=== PATIENT | male | born 1940 | race Caucasian/White ===

== ENCOUNTER 2018-02-12 18:03 | Observation (INO) | payer OTHER ==
[~2018-02-12] VITALS: Ht 172.7 cm; Wt 83.7 kg
[~2018-02-12 18:03] MED LIST: ALT25 PO; ASPEC81 PO; ATV1 PO; CMD1 PO; CRG625 PO; DIGO0.122 PO; FLUO40CA8 PO; FRRS300 PO; ISOS30TA3 PO; LOVA40TA4 PO; NTRGSL/4 UT; OMEG10007 PO; OXYC-57 PO; PRLSR20 PO; RANI300T2 PO
[2018-02-12] MEDS ORDERED: OPTIRAY 320 IV PRN (18:45)
--- NOTE | 2018-02-12 18:49 | DIAGNOSTIC IMAGING REPORT ---
CHEST ONE VIEW PORTABLE CLINICAL HISTORY: CHEST PAIN dyspnea COMPARISON STUDY: No previous studies for comparison. FINDINGS: The bones soft tissues and hemidiaphragms are normal. The cardiomediastinal silhouette is normal. The lungs are clear. The pulmonary vasculature is normal. IMPRESSION: Negative chest. The above report was generated using voice recognition software. It may contain grammatical, syntax or spelling errors. Electronically signed by: Merlin Degroot M.D. 02/12/2018 6:48 PM Dictated Date/Time: 02/12/2018 6:46 PM
[2018-02-12 19:05] LABS: BASO % 0.2 %; BASO ABS # 0.01 K/uL (0-0.2); EOS % 1.8 %; EOS ABS # 0.12 K/uL (0-0.5); HEMATOCRIT 39.4 % (42-52); HEMOGLOBIN 13.9 g/dL (14.0-18.0); IG# 0.01 K/uL (0.00-0.02); LYMPH % 29.2 %; LYMPH ABS # 1.92 K/uL (1.2-3.4); MEAN CELL VOLUME 93.4 fL (80-100); MEAN CORPUSCULAR HEMOGLOBIN 32.9 pg (25-34); MEAN CORPUSCULAR HGB CONC 35.3 g/dl (32-36); MEAN PLATELET VOLUME 8.7 fL (7.4-10.4); MONO % 13.4 %; MONO ABS # 0.88 K/uL (0.11-0.59); NEUT % 55.2 %; NEUT ABS # 3.64 K/uL (1.4-6.5); PLATELET COUNT 172 K/uL (130-400); RED CELL DISTRIBUTION WIDTH CV 13.1 % (11.5-14.5); RED CELL DISTRIBUTION WIDTH SD 44.7 fL (36.4-46.3); WHITE BLOOD COUNT 6.58 K/uL (4.8-10.8)
[2018-02-12 19:06] LABS: ISTAT CREATININE 0.9 mg/dl (0.6-1.3); ISTAT IONIZED CALCIUM 1.14 mmol/l (1.12-1.32); ISTAT POTASSIUM 4.1 mEq/L (3.3-5.0)
[2018-02-12 19:21] LABS: ALBUMIN 3.4 gm/dl (3.4-5.0); CALCIUM 8.6 mg/dl (8.5-10.1); CREATININE 0.95 mg/dl (0.60-1.40)
[2018-02-12 19:26] LABS: CKMB 1.1 ng/ml (0.5-3.6); TOTAL PROTEIN 6.8 gm/dl (6.4-8.2)
[2018-02-12 19:29] LABS: PTT PATIENT 26.5 SECONDS (21.0-31.0)
--- NOTE | 2018-02-12 19:41 | DIAGNOSTIC IMAGING REPORT ---
HEAD WITHOUT CONTRAST (CT) CT DOSE: 1175.88 mGy.cm HISTORY: Mental status change. Headache. eval for jacobs TECHNIQUE: Multiaxial CT images of the head were performed without the use of intravenous contrast. A dose lowering technique was utilized adhering to the principles of ALARA. Comparison: None. Findings: The paranasal sinuses and mastoid air cells are clear. The calvarium and skull base are intact. The ventricles and sulci are within normal limits. There is no mass, hematoma, midline shift, or acute infarct. Impression: No acute intracranial abnormality. The above report was generated using voice recognition software. It may contain grammatical, syntax or spelling errors. Electronically signed by: Merlin Degroot M.D. 02/12/2018 7:39 PM Dictated Date/Time: 02/12/2018 7:39 PM
--- NOTE | 2018-02-12 19:44 | DIAGNOSTIC IMAGING REPORT ---
CHEST ANGIO WITH CONTRAST CLINICAL HISTORY: EVAL FOR DISECTION, BACK PAIN, EPIGASTRIC PAIN TECHNIQUE: Transaxial acquisition with multi axial reformatted images COMPARISON STUDY: None FINDINGS: Mild atelectatic change thoracic aorta. No evidence for aneurysm or dissection. Mild cardia megaly. Lungs are considered clear. There are no focal infiltrative changes. Moderate degenerative change of the thoracic spine with no evidence for compression deformity. IMPRESSION: 1. No evidence for aneurysm or dissection of the thoracic aorta. 2. Mild atherosclerotic change. 3. No evidence for pulmonary embolus. 4. Lungs are clear. The above report was generated using voice recognition software. It may contain grammatical, syntax or spelling errors. Electronically signed by: Merlin Degroot M.D. 02/12/2018 7:43 PM Dictated Date/Time: 02/12/2018 7:40 PM
[2018-02-12] MEDS ORDERED: PRZC/10 PO (20:21)
[2018-02-12] MEDS ORDERED: ATV/1 PO (20:21)
[2018-02-12] MEDS ORDERED: CARV6.25 PO (20:21)
[2018-02-12] MEDS ORDERED: EZET10TA63 PO (20:21)
[2018-02-12] MEDS ORDERED: FLUO20CA35 PO (20:21)
[2018-02-12] MEDS ORDERED: ASPI81TA28 PO (20:21)
[2018-02-12] MEDS ORDERED: CYAN500T PO (20:21)
[2018-02-12] MEDS ORDERED: FERR1TAB23 PO (20:21)
[2018-02-12] MEDS ORDERED: CALC1CHW2 PO (20:21)
[2018-02-12] MEDS ORDERED: LNX125 PO (20:21)
[2018-02-12] MEDS ORDERED: [UNRECOGNIZED DRUG - CODE] PO (20:21)
[2018-02-12] MEDS ORDERED: MULTTAB PO (20:21)
[2018-02-12] MEDS ORDERED: ATOR-24 PO (20:21)
[2018-02-12] MEDS ORDERED: DIPH-437 PO (20:21)
[2018-02-12] MEDS ORDERED: ISOS60TA25 PO (20:21)
--- NOTE | 2018-02-12 20:27 | EMERGENCY ROOM VISIT NOTE ---
History Report prepared by Adelina: Julienne Bañuelos Under the Supervision of: Dr. Pedro Pablo Dobson M.D. First contact with patient: 18:18 Chief Complaint: CARDIAC ASSESSMENT Stated Complaint: BACK PAIN, TIERNEY, UPPER GASTRIC PAIN, ARM PAIN History of Present Illness The patient is a 77 year old male who presents to the Emergency Room with complaints of resolved chest pain which occurred last night. The patient reports hot flashes through his chest which occurred 3 times last night. His feet felt cold and he had an abnormal sensation in his left arm. He also had a headache and SOB with this. He felt warm like he might have a fever. He had some pain in his left shoulder blade. He eventually went back to sleep and when he woke this morning, he felt improved. He notes that he has had some chest tightness with exertion recently. He denies any black or bloody stools, numbness , or weakness. He has a history of angina and has nitro at home. He did not take any nitro last night. He has had multiple cardiac catheterizations in the past, but no stents. His last catheterization was 3-4 years ago. He is on aspirin daily. He has been having headaches with dizziness recently for which he is following with his PCP. He was sick with flu symptoms 1-2 weeks ago. He denies any history of diabetes, aortic aneurysm, or kidney problems. Source of History: patient, family Onset: last night Position: chest Quality: other (hot flash) Timing: resolved Modifying Factors (Worsening): exertion Associated Symptoms: + headache, + SOB, No melena, No hematochezia, No weakness, No numbness Note: Pt reports cold feet, left shoulder blade pain. Review of Systems See HPI for pertinent positives & negatives. A total of 10 systems reviewed and were otherwise negative. Past Medical & Surgical Medical Problems: (1) Chest pain (2) High cholesterol (3) Hypertension Surgical Problems: (1) S/P cholecystectomy Old medical records were reviewed. Nurse's notes were reviewed and I agree with. Family History FH: heart disease FHx: cancer Hypertension Social History Smoking Status: Former Smoker Alcohol Use: none Housing Status: lives with family Occupation Status: employed Current/Historical Medications Scheduled Acetaminophen/Diphenhydramine (Tylenol Pm), 2 TAB PO HS Aspirin (Aspirin Ec), 81 MG PO DAILY Atorvastatin (Lipitor), 40 MG PO QPM Calcium Carbonate-Vitamin D (Caltrate 600+D 600-400 mg-Unit), 1 TAB PO DAILY Carvedilol (Coreg), 6.25 MG PO BID Cyanocobalamin (Vitamin B-12), 500 MCG PO DAILY Digoxin (Digoxin), 0.125 MG PO DAILY Ezetimibe (Zetia), 10 MG PO QPM Ferrous Sulfate (Iron), 325 MG PO DAILY Fish Oil ([place]-3), 1 CAP PO DAILY Fluoxetine (Prozac), 20 MG PO DAILY Fluoxetine Hcl (Prozac), 10 MG PO DAILY Isosorbide Mononitrate Ext Rel (Imdur Ext Rel), 30 MG PO QAM Lorazepam (Ativan), 1 MG PO HS Multivitamins/Minerals (Mvi With Minerals), 1 TAB PO DAILY Nitroglycerin (Nitrostat), 0.4 MG UT PRN Omeprazole (Prilosec), 20 MG PO QAM Ramipril (Altace), 1.25 MG PO DAILY Ranitidine (Zantac), 300 MG PO HS Scheduled PRN Naproxen (Aleve), 220 MG PO DAILY PRN for Pain Allergies Coded Allergies: Ketorolac Tromethamine (Verified Adverse Reaction, Severe, hallucinations , 02/12/18) Physical Exam Vital Signs Date Time Temp Pulse Resp B/P (MAP) Pulse Ox O2 Delivery O2 Flow Rate FiO2 02/12/18 19:53 66 153/76 95 Room Air 02/12/18 18:31 67 02/12/18 18:17 95 Room Air 02/12/18 18:14 95 Room Air 02/12/18 18:07 36.6 78 18 176/88 95 Room Air Physical Exam General: Non-ill appearing older male in no acute distress. HEENT: Normal cephalic atraumatic. Pupils are equal round and reactive to light. Extraocular movements are intact. Oropharynx is pink with moist mucous membranes. No swelling of the mouth lips or tongue. Neck: Supple with a midline trachea. No meningeal signs or stiffness, no JVD or bruits. No Stridor. Chest: Clear to auscultation bilaterally. No wheezes or rhonchi. No increased work of breathing. Heart: regular rate and rhythm. Abdomen: Soft nontender, nondistended without rebound guarding or rigidity. Extremities: No cyanosis clubbing or edema. No calf tenderness or assymetry Spine/Back. Non tender to palpation. No CVA tenderness Skin: Good turgor without rashes. Neurologic exam: Cranial nerves two through 12 are intact. Motor and sensation are intact and symmetrical throughout. Medical Decision & Procedures ER Provider Diagnostic Interpretation: X-ray results as stated below per interpretation by me and the radiologist. Radiology results as stated below per my review and radiologist interpretation: CHEST ONE VIEW PORTABLE CLINICAL HISTORY: CHEST PAIN dyspnea COMPARISON STUDY: No previous studies for comparison. FINDINGS: The bones soft tissues and hemidiaphragms are normal. The cardiomediastinal silhouette is normal. The lungs are clear. The pulmonary vasculature is normal. IMPRESSION: Negative chest. The above report was generated using voice recognition software. It may contain grammatical, syntax or spelling errors. Electronically signed by: Merlin Degroot M.D. 02/12/2018 6:48 PM Dictated Date/Time: 02/12/2018 6:46 PM HEAD WITHOUT CONTRAST (CT) CT DOSE: 1175.88 mGy.cm HISTORY: Mental status change. Headache. eval for tierney TECHNIQUE: Multiaxial CT images of the head were performed without the use of intravenous contrast. A dose lowering technique was utilized adhering to the principles of ALARA. Comparison: None. Findings: The paranasal sinuses and mastoid air cells are clear. The calvarium and skull base are intact. The ventricles and sulci are within normal limits. There is no mass, hematoma, midline shift, or acute infarct. Impression: No acute intracranial abnormality. The above report was generated using voice recognition software. It may contain grammatical, syntax or spelling errors. Electronically signed by: Merlin Degroot M.D. 02/12/2018 7:39 PM Dictated Date/Time: 02/12/2018 7:39 PM CHEST ANGIO WITH CONTRAST CLINICAL HISTORY: EVAL FOR DISECTION, BACK PAIN, EPIGASTRIC PAIN TECHNIQUE: Transaxial acquisition with multi axial reformatted images COMPARISON STUDY: None FINDINGS: Mild atelectatic change thoracic aorta. No evidence for aneurysm or dissection. Mild cardia megaly. Lungs are considered clear. There are no focal infiltrative changes. Moderate degenerative change of the thoracic spine with no evidence for compression deformity. IMPRESSION: 1. No evidence for aneurysm or dissection of the thoracic aorta. 2. Mild atherosclerotic change. 3. No evidence for pulmonary embolus. 4. Lungs are clear. The above report was generated using voice recognition software. It may contain grammatical, syntax or spelling errors. Electronically signed by: Merlin Degroot M.D. 02/12/2018 7:43 PM Dictated Date/Time: 02/12/2018 7:40 PM Laboratory Results 02/12/18 18:50 Red Blood Count 4.22, Mean Corpuscular Volume 93.4, Mean Corpuscular Hemoglobin 32.9, Mean Corpuscular Hemoglobin Concent 35.3, Mean Platelet Volume 8.7, Neutrophils (%) (Auto) 55.2, Lymphocytes (%) (Auto) 29.2, Monocytes (%) (Auto) 13.4, Eosinophils (%) (Auto) 1.8, Basophils (%) (Auto) 0.2, Neutrophils # (Auto ) 3.64, Lymphocytes # (Auto) 1.92, Monocytes # (Auto) 0.88, Eosinophils # (Auto ) 0.12, Basophils # (Auto) 0.01 02/12/18 18:50 Test 02/12/18 18:50 02/12/18 18:52 02/12/18 18:54 White Blood Count 6.58 K/uL (4.8-10.8) Red Blood Count 4.22 M/uL (4.7-6.1) Hemoglobin 13.9 g/dL (14.0-18.0) Hematocrit 39.4 % (42-52) Mean Corpuscular Volume 93.4 fL (80-100) Mean Corpuscular Hemoglobin 32.9 pg (25-34) Mean Corpuscular Hemoglobin Concent 35.3 g/dl (32-36) Platelet Count 172 K/uL (130-400) Mean Platelet Volume 8.7 fL (7.4-10.4) Neutrophils (%) (Auto) 55.2 % Lymphocytes (%) (Auto) 29.2 % Monocytes (%) (Auto) 13.4 % Eosinophils (%) (Auto) 1.8 % Basophils (%) (Auto) 0.2 % Neutrophils # (Auto) 3.64 K/uL (1.4-6.5) Lymphocytes # (Auto) 1.92 K/uL (1.2-3.4) Monocytes # (Auto) 0.88 K/uL (0.11-0.59) Eosinophils # (Auto) 0.12 K/uL (0-0.5) Basophils # (Auto) 0.01 K/uL (0-0.2) RDW Standard Deviation 44.7 fL (36.4-46.3) RDW Coefficient of Variation 13.1 % (11.5-14.5) Immature Granulocyte % (Auto) 0.2 % Immature Granulocyte # (Auto) 0.01 K/uL (0.00-0.02) Prothrombin Time 10.3 SECONDS (9.0-12.0) Prothromb Time International Ratio 1.0 (0.9-1.1) Activated Partial Thromboplast Time 26.5 SECONDS (21.0-31.0) Partial Thromboplastin Ratio 1.0 Est Creatinine Clear Calc Drug Dose 69.1 ml/min Estimated GFR () 89.1 Estimated GFR (Non- 76.9 BUN/Creatinine Ratio 16.2 (10-20) Calcium Level 8.6 mg/dl (8.5-10.1) Magnesium Level 2.4 mg/dl (1.8-2.4) Total Bilirubin 0.7 mg/dl (0.2-1) Direct Bilirubin 0.2 mg/dl (0-0.2) Aspartate Amino Transf (AST/SGOT) 20 U/L (15-37) Alanine Aminotransferase (ALT/SGPT) 28 U/L (12-78) Alkaline Phosphatase 71 U/L (45-117) Total Creatine Kinase 76 U/L (39-308) Creatine Kinase MB 1.1 ng/ml (0.5-3.6) Creatine Kinase MB Ratio 1.4 (0-3.0) Total Protein 6.8 gm/dl (6.4-8.2) Albumin 3.4 gm/dl (3.4-5.0) Lipase 83 U/L (73-393) Thyroid Stimulating Hormone (TSH) 3.410 uIu/ml (0.300-4.500) Bedside Hemoglobin 13.9 g/dl (14.0-18.0) Bedside Hematocrit 41 % (42-52) Bedside Sodium 138 mEq/L (135-144) Bedside Potassium 4.1 mEq/L (3.3-5.0) Bedside Chloride 103 mEq/L (101-112) Bedside Total CO2 25 mEq/l (24-31) Anion Gap 16.0 mmol/L (16-25) Bedside Blood Urea Nitrogen 16 mg/dl (7-18) Bedside Creatinine 0.9 mg/dl (0.6-1.3) Bedside Glucose (other) 96 mg/dl (70-99) Bedside Ionized Calcium (Frankie) 1.14 mmol/l (1.12-1.32) Bedside Troponin I < 0.030 ng/ml (0-0.045) Laboratory studies as stated above per my review. ECG Per My Interpretation Indication: chest pain Rate (beats per minute): 68 Rhythm: normal sinus Findings: no acute ischemic change, no ectopy, other (LVH) Comparison ECG Date: 08-Oct-2010 Change: no significant change ED Course 1818: Past medical records reviewed. The patient was evaluated in room A3, and a complete history and physical examination were performed. 1854: I reevaluated the patient. He is resting comfortably. 1944: I reevaluated the patient. I updated them on the results. 2007: Upon reevaluation, the patient is resting comfortably. I discussed the results and treatment plan with the patient and family. They verbalized agreement of the treatment plan. The patient will be evaluated for further management. 2019: I discussed the patient's case with Dr. Marin, [facility]. The patient will be evaluated for further management. Medical Decision Differentials include, but are not limited to; acute coronary syndrome, arrhythmia, aortic dissection, CHF, intracranial process, electrolyte or metabolic abnormality. This patient comes in as described above. He had several episodes of chest pain last evening that lasted briefly. He feels better at present the also radiating his arm and he may have had a headache as well. He has a history of cardiac disease and is not of the calf for several years he did not take any nitro. His daughter who is a nurse tells me that he does have cardiac blockages but they have not stented him. He has taken aspirin prior to arrival today. IV access established EKG and multiple blood testing was obtained. His EKG does not show any acute ischemic changes or ectopy and no changes when compared to old. His troponin is not elevated. He has no acute electrolyte or metabolic abnormalities. He has normal renal function. He has nothing to suggest liver, gallbladder, or pancreas disease. I did a CAT scan of his head is unremarkable. I did CAT scan angiography of his chest and shows no evidence of aortic dissection or PE or other abnormality. Given his symptoms this could still be an unstable angina type picture and I do think he needs to be observed for further treatment and evaluation I have consulted Dr. Lizarraga to see him in the ER for these measures. Patient and his family are happy with this plan. Medication Reconcilliation Current Medication List: was personally reviewed by me Blood Pressure Screening Patient's blood pressure: Elevated blood pressure Consults Time Called: 2014 Consulting Physician: Dr. Marin [facility] hospitalist Returned Call: 2019 Discussed the patient's case. The patient will be evaluated for further management. Impression Primary Impression: Precordial chest pain Additional Impressions: Unstable angina Headache Scribe Attestation The scribe's documentation has been prepared under my direction and personally reviewed by me in its entirety. I confirm that the note above accurately reflects all work, treatment, procedures, and medical decision making performed by me. Departure Information Dispostion Being Evaluated By Hospitalist Referrals Zainab Raya M.D. (PCP) Patient Instructions My [facility] Problem Qualifiers
[2018-02-12] MEDS ORDERED: NAPR1TAB9 PO (20:32)
[2018-02-12] MEDS ORDERED: CARVEDILOL 6.25 MG TAB PO ONE (21:20)
[2018-02-12] MEDS ORDERED: ATORVASTATIN 40 MG TAB PO ONE (21:20)
[2018-02-12] MEDS ORDERED: SODIUM CHLORIDE 0.9% 1000ML 1,000 ML IV SCH (21:20)
[2018-02-12] MEDS ORDERED: EZETIMIBE 10MG TAB PO ONE (21:20)
[2018-02-12] MEDS ORDERED: MoRPHine SULFATE 4 MG/ML 1 ML CARP\\VIAL IV PRN (21:30)
[2018-02-12] MEDS ORDERED: PROCHLORPERAZINE INJ 5 MG in SYRINGE 4 ML IV PRN (21:30)
[2018-02-12] MEDS ORDERED: NITROGLYCERIN 0.4 MG SL PER TAB CHARGE SL PRN (21:30)
[2018-02-12] MEDS ORDERED: LORAZEPAM 1 MG TAB PO PRN (21:30)
[2018-02-12] MEDS ORDERED: TRAMADOL HCL 50 MG TAB PO PRN (21:30)
[2018-02-12] MEDS ORDERED: ACETAMINOPHEN 325 MG TAB PO PRN (21:30)
[2018-02-12 23:35] VITALS: BP 156/62; PULSE 70
[2018-02-12 23:44] VITALS: BP 156/62; PULSE 70; TEMP 36.7; O2SAT 94
[2018-02-12] MEDS: RANITIDINE HCL 150 MG TAB PO SCH (23:46)
[2018-02-12] MEDS: ENOXAPARIN 30 MG/0.3 ML SYR SC SCH (23:48)
[2018-02-12 23:54] VITALS: BP 165/62; PULSE 70; TEMP 36.7; O2SAT 93; Ht 172.7 cm; Wt 83.7 kg
--- NOTE | 2018-02-12 23:58 | HISTORY & PHYSICAL EXAMINATION ---
DATE OF ADMISSION: 02/12/2018 PRIMARY CARE PHYSICIAN: Zainab Raya MD. CHIEF COMPLAINT: Chest pain. HISTORY OF PRESENT ILLNESS: History obtained from patient and records. Medical history significant for CAD, hypertension, hyperlipidemia, past tobacco abuse, chronic anemia (baseline hemoglobin of 13), AZIZA on CPAP. Recent confinement under orthopedic service for left knee surgery. Last night, patient had achy epigastric discomfort going to the chest and left arm with some shortness of breath. Different from heartburn as per patient. Spontaneous resolution, vague headache symptoms. Flu-like illness a few weeks ago, currently resolving. Patient brought by family to the Emergency Room. He is currently comfortable. MEDICAL HISTORY: As above. Sees [facility], Dr. Terry. Last visit was September 2017, stable CAD as per outpatient note. 2D echo from 2014 also showed EF 60%, normal LA size, normal RA size. No mitral stenosis. LVH, diastolic dysfunction. SURGERIES: He has had knee surgeries, cholecystectomy, eye surgeries. HOME MEDICATIONS: Include digoxin, Zetia, iron, Prozac, omega, Imdur, Ativan, multivitamins, Aleve, Nitrostat, Prilosec, Altace, Zantac, aspirin, Lipitor, Coreg, digoxin, Caltrate, cyanocobalamin. ALLERGIES: No known drug allergies. FAMILY HISTORY: Heart disease. PERSONAL AND SOCIAL HISTORY: Past tobacco use, no chronic intake of alcoholic beverages, still involved in car work. REVIEW OF SYSTEMS: As per HPI. All 10 systems reviewed. All other ROS negative. PHYSICAL EXAMINATION: VITAL SIGNS: Blood pressure noted to be 176/88, later 156/76, pulse 86, RR 18, temperature 36.6, sats 95 on room air. GENERAL: Slightly anxious, no respiratory distress. SKIN: Pallor, warm. HEENT: Alopecia. Pale palpebral conjunctiva. No ptosis. No dry mucosa. NECK: Short, supple, nontender. LUNGS: Decreased breath sounds. No tenderness. HEART: Regular rate and rhythm, no murmur. ABDOMEN: Soft, nontender. EXTREMITIES: No edema. No gross deformity. No tenderness. NEUROLOGIC: Coherent. No gross focality. LABORATORY DATA: Hemoglobin was noted to be 13.9, hematocrit 39.4, white blood cell count 6.5, platelets 172. Sodium 136, potassium 4, chloride 104, CO2 25, BUN 15, creatinine 0.9, glucose 91. LFTs, lipase normal. Troponin was noted to be 0.03. EKG as per my interpretation, normal sinus rhythm, T-wave flattening in the inferior leads. CT angio, clear lungs, no PE, no aneurysm, dissection; atherosclerosis. ASSESSMENT: 1. Chest pain secondary to uncontrolled blood pressure, anxiety. rule out acute coronary syndrome (hx of coronary artery disease as per records) 2. Past tobacco abuse. 3. Chronic anemia, hemoglobin at baseline. 4. Sleep apnea on CPAP. PLAN: Observation PCU. Continue home antihypertensives - doses may need titration. Continue aspirin and statin for secondary CAD prevention. Follow cardiac markers, Cardio consult a.m. ([facility], Dr. Arcos as per patient's daughter's request) DVT prophylaxis, Lovenox subQ. Full code. Daughter requesting for updates from providers. Miss Susanne Joseph at [phone]. MTDD
[2018-02-13] MEDS ORDERED: IV FLUIDS COMPLETED PRN (02:15)
[2018-02-13 04:08] VITALS: BP 146/74; PULSE 64; TEMP 36.5; O2SAT 94
[2018-02-13 05:29] LABS: BASO % 0.3 %; BASO ABS # 0.02 K/uL (0-0.2); EOS % 3.2 %; EOS ABS # 0.21 K/uL (0-0.5); HEMATOCRIT 38.2 % (42-52); HEMOGLOBIN 13.2 g/dL (14.0-18.0); IG# 0.01 K/uL (0.00-0.02); LYMPH ABS # 2.11 K/uL (1.2-3.4); MEAN CELL VOLUME 93.4 fL (80-100); MEAN CORPUSCULAR HEMOGLOBIN 32.3 pg (25-34); MEAN CORPUSCULAR HGB CONC 34.6 g/dl (32-36); MEAN PLATELET VOLUME 8.4 fL (7.4-10.4); MONO % 14.6 %; MONO ABS # 0.96 K/uL (0.11-0.59); NEUT % 49.7 %; NEUT ABS # 3.28 K/uL (1.4-6.5); PLATELET COUNT 156 K/uL (130-400); RED CELL DISTRIBUTION WIDTH CV 13.1 % (11.5-14.5); WHITE BLOOD COUNT 6.59 K/uL (4.8-10.8)
[2018-02-13 05:59] LABS: BLOOD UREA NITROGEN 17 mg/dl (7-18); CALCIUM 8.5 mg/dl (8.5-10.1); CARBON DIOXIDE 24 mmol/L (21-32); GLUCOSE 89 mg/dl (70-99); POTASSIUM 4.1 mmol/L (3.5-5.1); SODIUM 141 mmol/L (136-145)
[2018-02-13 07:22] VITALS: BP 155/82; PULSE 62; TEMP 36.5; O2SAT 95
[2018-02-13] MEDS: CARVEDILOL 6.25 MG TAB PO SCH ×2 (07:44→21:00)
[2018-02-13] MEDS: PANTOprazole SOD 40 MG TAB PO SCH (07:45)
[2018-02-13] MEDS: ISOSORBIDE MONONITRATE 60 MG TABCR PO SCH (07:45)
[2018-02-13] MEDS: FLUOXETINE HCL 10 MG CAP PO SCH (07:45)
[2018-02-13] MEDS: FERROUS SULFATE 325 MG TAB PO SCH (07:45)
[2018-02-13] MEDS: ASPIRIN 81 MG ECTAB PO SCH (07:45)
[2018-02-13] MEDS: CEROVITE ADV FORMULA TAB PO SCH (07:45)
[2018-02-13] MEDS ORDERED: ENALAPRIL MALEATE 5 MG TAB PO SCH (09:00)
[2018-02-13] MEDS ORDERED: ENALAPRIL MALEATE 5 MG TAB PO STA (09:07)
[2018-02-13] MEDS ORDERED: ENALAPRIL MALEATE 10 MG TAB PO ONE (09:15)
[2018-02-13] MEDS ORDERED: NURSING VERBAL MED ORDER ONE (09:30)
[2018-02-13 10:09] VITALS: BP 121/71; PULSE 77
--- NOTE | 2018-02-13 10:31 | CARDIOLOGY CONSULTATION ---
DATE OF CONSULTATION: 02/13/2018 CONSULTATION REQUESTED BY: Dr. Marin. REASON FOR CONSULTATION: Chest pain and uncontrolled hypertension. HISTORY OF PRESENT ILLNESS: Mr. Abbasi is a very pleasant 77-year-old gentleman who normally follows with Dr. Terry of [facility]. He presented to [facility] late in the evening of 02/12/2018 with a complaint of chest discomfort. The patient states that his discomfort actually started the night before presentation. He states that on the evening of the , he had a headache before going to bed and felt that his extremities were very cold and he could not get them warm, but otherwise he is feeling well and states he took all his medications that day. He then woke up about 01:30 in the morning with significant discomfort in his abdomen and chest. He described it as a dull achy/pressure sensation that stayed in the middle of his thorax, but then radiated up into his left shoulder and down his left arm. He states that this pain lasted for approximately 3 hours and then subsided and a few smaller episodes afterwards. Neither of these episodes were associated with shortness of breath, diaphoresis, nausea, lightheadedness, dizziness, or syncope. He did have an overwhelming flushing sensation now. He also states he has never had similar episode in the past. The next morning, he called his family physician, trying to be seen as an outpatient; however, he was then directed to the Emergency Department. By the time he presented to the Emergency Department, he has not had any chest pain for approximately 12 hours. His blood pressure was found to be significantly elevated and he was admitted to the telemetry unit. Overnight, he has had a slight headache, but no recurrences of chest discomfort and his blood pressure was noted to be consistently elevated. Luckily though, his EKG was unremarkable as well were his troponins. Currently, he states that he feels fine at rest. PAST SURGICAL HISTORY: 1. Multiple cardiac catheterizations reported, most recently approximately 2 years ago. The patient being told that he had a nonobstructive coronary artery disease, never with stent placement. 2. Cholecystectomy. MEDICAL ILLNESSES: 1. Nonobstructive coronary artery disease. 2. Hypertension. 3. Hypercholesterolemia. 4. GERD. FAMILY HISTORY: Noncontributory. SOCIAL HISTORY: The patient has a very remote tobacco use history. Denies alcohol or recreational drug use. He is and lives at home with his . 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 REVIEW OF SYSTEMS: As per HPI, all other review of systems reviewed and negative at this time. ALLERGIES: KETOROLAC. MEDICATIONS AN OUTPATIENT: 1. Aspirin 81 mg daily. 2. Atorvastatin 40 mg daily. 3. Coreg 6.25 mg b.i.d. 4. Digoxin 0.125 mg daily. 5. Zetia 10 mg daily. 6. Imdur 30 mg daily. 7. Ramipril 1.25 mg daily. 8. Zantac daily. 9. Omeprazole daily. 10. Prozac daily. PHYSICAL EXAMINATION: VITAL SIGNS: Temperature 36.5, pulse 62, respiratory rate 12, and blood pressure 155/82. GENERAL: Awake, alert, and oriented x3 in no acute distress. HEENT: Normocephalic and atraumatic. Pupils equal, round react to light and accommodation. Extraocular muscles intact. Anicteric sclerae. Moist mucous membranes. NECK: No JVD and no bruit. CARDIOVASCULAR: Regular. Positive S4. Normal S1 and S2. No S3. No murmurs or rubs. PULMONARY: Clear to auscultation bilaterally. No rales, rhonchi, or wheezing. ABDOMEN: Bowel sounds x4. Soft. No rebound, guarding, or tenderness. No organomegaly. EXTREMITIES: No clubbing, cyanosis or edema. +2 pedal pulses bilaterally. SKIN: Warm and dry. TEST RESULTS: A 12-lead EKG performed in the Emergency Department independently reviewed at this time shows normal sinus rhythm at 68 beats per minute. LVH voltage criteria is present. Leftward axis and nonspecific T-wave flattening in the inferior leads. No significant change compared to previous study from 2010. Troponin negative x2. IMPRESSION: 1. Chest pain, likely secondary to hypertensive urgency. 2. History of nonobstructive coronary artery disease. 3. Dyslipidemia. RECOMMENDATIONS: It was my pleasure to see Mr. Abbasi in consultation today. The patient and his family were counseled that given the fact that his chest discomfort awoke him from sleep along with the fact that his EKG is unremarkable and cardiac enzymes are unremarkable, I believe he is most likely suffering from hypertensive urgency, especially given the timing of the event. So at this point, we will proceed with a 2D echocardiogram to evaluate for any structural abnormalities and obtain a third set of troponins. At the same time, we will work to get his blood pressure under control. His ramipril was changed to Vasotec upon admission 5 mg daily and I will increase that to 20 mg daily. I would like to keep an eye on him overnight to follow his blood pressure and should his blood pressures be controlled in the morning, his third set of enzymes come back negative, his echocardiogram is unremarkable, then he will likely be discharged to home at that point with instructions to follow up with his primary retail director as an outpatient for outpatient stress testing. Both the patient and his family state that they understand and agree with the above plan and will follow up as scheduled. The patient will remain on telemetry monitoring for now.
[2018-02-13 11:26] VITALS: BP 108/53; PULSE 77; TEMP 36.3; O2SAT 94
[2018-02-13 15:19] VITALS: BP 122/77; PULSE 62; TEMP 36.6; O2SAT 94
[2018-02-13] MEDS ORDERED: DIGOXIN 0.125 MG TAB PO SCH (16:00)
[2018-02-13] MEDS ORDERED: EZETIMIBE 10MG TAB PO SCH (21:00)
[2018-02-13] MEDS ORDERED: ATORVASTATIN 40 MG TAB PO SCH (21:00)
[2018-02-13] MEDS: RANITIDINE HCL 150 MG TAB PO SCH (21:00)
[2018-02-13] MEDS: ENOXAPARIN 30 MG/0.3 ML SYR SC SCH (21:30)
[2018-02-13 23:25] VITALS: BP 171/85; PULSE 67; TEMP 36.8; O2SAT 94
[2018-02-14 03:15] VITALS: BP 168/77; PULSE 65; TEMP 36.4; O2SAT 95
[2018-02-14] MEDS ORDERED: ENALAPRIL MALEATE 5 MG TAB PO ONE (03:34)
[2018-02-14 07:27] VITALS: BP 128/73; PULSE 74; TEMP 36.6; O2SAT 94
[2018-02-14] MEDS: CARVEDILOL 6.25 MG TAB PO SCH (08:08)
[2018-02-14] MEDS: FLUOXETINE HCL 10 MG CAP PO SCH (08:08)
[2018-02-14] MEDS: ISOSORBIDE MONONITRATE 60 MG TABCR PO SCH (08:08)
[2018-02-14] MEDS: PANTOprazole SOD 40 MG TAB PO SCH (08:08)
[2018-02-14] MEDS: ASPIRIN 81 MG ECTAB PO SCH (08:08)
[2018-02-14] MEDS: CEROVITE ADV FORMULA TAB PO SCH (08:08)
[2018-02-14] MEDS: FERROUS SULFATE 325 MG TAB PO SCH (08:08)
--- NOTE | 2018-02-14 08:50 | Cardiology Follow-Up ---
Subjective Subjective Date of Service: Feb 14, 2018. Pt evaluation today including: conversation w/ patient, conversation w/ family , physical exam, chart review, lab review, review of studies, review of inpatient medication list Additional Details: Pt seen and examined with family at bedside, states that he still has a slight headache. Denies cp, sob, palpitations, lightheadedness or dizziness. Tele reviewed: sinus rhythm without arrhythmia or significant ectopy. Problem List Medical Problems: (1) Headache Status: Acute (2) Precordial chest pain Status: Acute (3) Unstable angina Status: Acute Review of Systems Respiratory: No see HPI, No cough, No sputum, No wheezing, No shortness of breath, No dyspnea on exertion, No dyspnea at rest, No hemoptysis, No problem reported Cardiac: No see HPI, No chest pain, No orthopnea, No PND, No edema, No claudication, No palpitations, No problem reported Objective Vital Signs Last Vital Signs Documentation Date Time Temp Pulse Resp B/P (MAP) Pulse Ox O2 Delivery O2 Flow Rate FiO2 02/14/18 07:27 36.6 74 18 128/73 (91) 94 02/14/18 04:00 Room Air Physical Exam: General Appearance: WD/WN, no apparent distress Eyes: bilateral eyes normal inspection, bilateral eyes PERRL, bilateral eyes EOMI ENT: normal ENT inspection, hearing grossly normal, pharynx normal Neck: supple, no adenopathy, thyroid normal, no JVD, no carotid bruits, trachea midline Respiratory/Chest: chest non-tender, lungs clear, normal breath sounds, no respiratory distress, no accessory muscle use Cardiovascular: regular rate, rhythm, no edema, no JVD, no murmur, + gallop/S4 Abdomen: normal bowel sounds, non tender, soft, no organomegaly, no pulsatile mass Extremities: normal inspection, no pedal edema, no calf tenderness 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 Hypertensive urgency BP improved some elevations in the early AM but now well controlled no further chest discomfort cardiac enzymes negative if echocardiogram is unremarkable then would suggest d/c to home with follow up with primary drop tester for stress testing within 1 week 2. hx nonobstructive CAD I'm not sure what to make of his outpatient medical regimen specifically digoxin hx of preserved EF and no arrhythmias request for records unanswered likely d/c to home today after echo
[2018-02-14] MEDS ORDERED: ENALAPRIL MALEATE 5 MG TAB PO SCH (09:00)
--- NOTE | 2018-02-14 09:11 | Progress Note ---
Internal Med Progress Note Date of Service: Feb 13, 2018. Provider Documentation: SUBJECTIVE: isra et had chest pain the night before of admission going to left arm with some sob currently no pain or sob afebrile usually ambulates without any issues no cough currently resting comfortably and hemodynamically stable OBJECTIVE: Vital Signs-as noted below Exam: General-alert and oriented. ENT-Normal hearing Neck-no neck masses Lungs-cta b/l no wheezing no crackles present Heart-S1 and S2 heard regular rate and rhythm no murmurs Abdomen-Soft bowel sounds present non tender no distension Extremities-no edema no erythema Neuro-alert and awake moves extremities Lab data as noted below. ASSESSMENT & PLAN: 1. Chest pain mostlikely uncontrolled blood pressure, anxiety. rule out acute coronary syndrome (hx of coronary artery disease as per records) serial ce negative await echo cardiology on board 2. Past tobacco abuse. 3. Chronic anemia, hemoglobin at baseline. 4. Sleep apnea on CPAP DVT PROPHYLAXIS scds DISPOSITION to be determined Vital Signs: Date Time Temp Pulse Resp B/P (MAP) Pulse Ox O2 Delivery O2 Flow Rate FiO2 02/14/18 07:27 36.6 74 18 128/73 (91) 94 02/14/18 04:00 Room Air 02/14/18 03:15 36.4 65 18 168/77 (107) 95 Room Air 02/13/18 23:59 Room Air 02/13/18 23:25 36.8 67 18 171/85 (113) 94 Room Air 02/13/18 20:00 Room Air 02/13/18 16:05 62 02/13/18 16:00 Room Air 02/13/18 15:19 36.6 62 16 122/77 (92) 94 02/13/18 11:40 Room Air 02/13/18 11:26 36.3 77 18 108/53 (71) 94 Room Air 02/13/18 10:09 77 121/71 (88)
--- NOTE | 2018-02-14 11:16 | ECHOCARDIOGRAM REPORT ---
*NOTICE TO RECEIVING LIBERTARIAN AGENCY This information is strictly Confidential and protected under [place] law. [place] law prohibits you from making any further disclosure of this information unless further disclosure is expressly permitted by the written consent of the person to whom it pertains or is authorized by law. A general authorization for the release of medical or other information is not sufficient for this purpose. Hospital accepts no responsibility if the information is made available to any other person, INCLUDING THE PATIENT. Interpretation Summary * Name: CINDY MURPHY Study Date: 02/14/2018 09:36 AM BP: 128/73 mmHg * Patient Location: [facility] HR: 74 * : 1940 (M/d/yyyy) Gender: Male Height: 68 in * Age: 77 yrs Ethnicity: CA Weight: 184 lb * Ordering Physician: Jaswinder Yates DO * Performed By: Micha Shankar RCS * * Reason For Study: Chest Pain * BSA: 2.0 m2 * -- Conclusions -- * Normal LV chamber size with mild concentric LVH. * Normal LV systolic function, EF 55-60%. * No segmental left ventricular wall motion abnormalities are noted. * Grade I diastolic dysfunction. * Aortic valve sclerosis mild, without significant aortic valvular stenosis. * Mild left atrial enlargement. Procedure Details * A complete two-dimensional transthoracic echocardiogram was performed (2D, M-mode, Doppler and color flow Doppler). Left Ventricle * The left ventricle is normal in size. * There is mild concentric left ventricular hypertrophy. * Ejection Fraction = 55-60%. * Left ventricular systolic function is normal. * No segmental left ventricular wall motion abnormalities are noted. * The left ventricular wall motion is normal. Right Ventricle * The right ventricular cavity size is normal (basal dimension <4.2 cm in right ventricular apical 4-chamber view). * The right ventricular systolic function is normal as assessed by tricuspid annular plane systolic excursion (TAPSE) (normal >1.5 cm). Atria * The left atrium is mildly dilated. * Right atrial size is normal. * No ASD detected; PFO is not assessed. Mitral Valve * The mitral valve leaflets appear thickened, but open well. * There is no mitral valve stenosis. * There is no mitral regurgitation noted. Tricuspid Valve * The tricuspid valve is normal in structure and function. Aortic Valve * The aortic valve is trileaflet. * Aortic valve sclerosis mild, without significant aortic valvular stenosis. * There is no significant aortic regurgitation. Pulmonic Valve * The pulmonary valve is not well seen, but the Doppler examination is normal without significant regurgitation or stenosis. Great Vessels * The aortic root and proximal ascending aorta are normal sized. Pericardium/Pleural * There is no pericardial effusion. Left Ventricular Diastolic Function * Grade I diastolic dysfunction, (abnormal relaxation pattern). MMode 2D Measurements and Calculations IVSd 1.0 cm IVSs 1.2 cm LVIDd 3.6 cm LVIDs 2.5 cm LVPWd 1.0 cm LVPWs 1.2 cm IVS/LVPW 1.0 FS 30.2 % EDV(Teich) 54.3 ml ESV(Teich) 22.5 ml EF(Teich) 58.5 % EDV(cubed) 46.6 ml ESV(cubed) 15.8 ml EF(cubed) 66.1 % % IVS thick 11.2 % % LVPW thick 13.2 % LV mass(C)d 113.6 grams LV mass(C)dI 57.6 grams/m\S\2 LV mass(C)s 81.5 grams LV mass(C)sI 41.3 grams/m\S\2 SV(Teich) 31.8 ml SI(Teich) 16.1 ml/m\S\2 SV(cubed) 30.8 ml SI(cubed) 15.6 ml/m\S\2 Ao root diam 3.2 cm Ao root area 8.1 cm\S\2 ACS 1.6 cm LA dimension 4.3 cm asc Aorta Diam 3.0 cm LA/Ao 1.3 EDV(MOD-sp4) 114.0 ml ESV(MOD-sp4) 52.0 ml EF(MOD-sp4) 54.4 % EDV(MOD-sp2) 68.0 ml ESV(MOD-sp2) 30.0 ml EF(MOD-sp2) 55.9 % SV(MOD-sp4) 62.0 ml SI(MOD-sp4) 31.4 ml/m\S\2 SV(MOD-sp2) 38.0 ml SI(MOD-sp2) 19.3 ml/m\S\2 Doppler Measurements and Calculations MV E max chu 43.7 cm/sec MV A max chu 65.7 cm/sec MV E/A 0.67 MV P1/2t max chu 50.2 cm/sec MV P1/2t 115.6 msec MVA(P1/2t) 1.9 cm\S\2 MV dec slope 127.2 cm/sec\S\2 MV dec time 0.50 sec Ao V2 max 96.0 cm/sec Ao max PG 3.7 mmHg Ao max PG (full) 0.84 mmHg LV V1 max PG 2.8 mmHg LV V1 max 84.3 cm/sec PA V2 max 98.7 cm/sec PA max PG 3.9 mmHg TR max chu 223.0 cm/sec
[2018-02-14 11:24] VITALS: BP 115/63; PULSE 65; TEMP 36.4; O2SAT 96
--- NOTE | 2018-02-14 13:30 | DIAGNOSTIC IMAGING REPORT ---
CT SCAN OF THE CERVICAL SPINE CLINICAL HISTORY: Neck pain. COMPARISON STUDY: No priors. TECHNIQUE: CT scan of the cervical spine is performed from the skull base to the upper thoracic spine. Images are reviewed in the axial, sagittal, and coronal planes. IV contrast was not administered for this examination. A dose lowering technique was utilized adhering to the principles of ALARA. CT DOSE: 486.71 mGycm FINDINGS: Skeletal structures: The skeletal structures are osteopenic. There is no evidence of fracture or subluxation involving the cervical spine. Vertebral body height is maintained. There is minimal anterolisthesis at C4-C5 and C6-C7, as well as minimal retrolisthesis at C5-C6. There is straightening of the cervical lordosis. Apparent curvature of the cervical spine is likely positional. The odontoid process and lateral masses are intact. The atlantoaxial articulation is preserved noting advanced productive degenerative change. The spinous processes appear intact. Degenerative endplate sclerosis is seen at C5-C6. A large hemangioma is noted in the body of C3. There is moderate to advanced multilevel cervical spondylosis. Uncovertebral and facet arthropathy contribute to neural foraminal stenosis at most levels. Intervertebral discs: There is moderate disc space narrowing at C2-C3. Moderate to advanced disc space narrowing is seen at C5-C6 and C6-C7. Central canal: Posterior disc osteophyte complexes at C4-C5, C5-C6, and C6-C7 may contribute to mild acquired compromise of the central canal. Soft tissues: The prevertebral and paraspinous soft tissues are within normal limits. Calvarium: The visualized calvarium at the skull base appears intact. Brain parenchyma: Partially visualized brain parenchyma the skull base is within normal limits. Sinuses and mastoids: There is opacification of the partially imaged left maxillary antrum. The sinus wall appears thickened and sclerotic suggesting chronicity. Trace mucosal thickening is noted in the visualized right maxillary antrum. The mastoid air cells are well pneumatized. Lung apices: Clear as visualized. IMPRESSION: 1. There is no evidence of fracture or subluxation involving the cervical spine. 2. Osteopenia and spondylotic change as above. Electronically signed by: Albert Thibodeaux M.D. 02/14/2018 1:29 PM Dictated Date/Time: 02/14/2018 1:25 PM
[2018-02-14] MEDS ORDERED: VST5 PO (13:45)
--- NOTE | 2018-02-14 13:47 | Discharge Instructions ---
Discharge Instructions Date of Service Feb 14, 2018. Admission Reason for Admission: Chest Pain Discharge Discharge Diagnosis / Problem: chest pain Discharge Goals Goal(s): Decrease discomfort, Improve function Activity Recommendations Activity Limitations: resume your previous activity . Instructions / Follow-Up Instructions / Follow-Up FOLLOWUP WITH FAMILY DOCTOR DR.MANISHA BLACKBURN ON February AT 2:30PM. FOLLOWUP WITH CARDIOLOGY WITH IN A WEEK FOR STRESS TEST. CHANGE IN MEDICATION: STOPPED RAMIPRIL STARTED ON ENALAPRIL 20MG DAILY. LAB : BMP IN 1-2 WEEKS STARTED ON ENALAPRIL AND FOLLOW RESULTS WITH FAMILY DOCTOR. Current Hospital Diet Patient's current hospital diet: AHA Diet (Heart Healthy) Discharge Diet Recommended Diet: AHA Diet (Heart Healthy) Pending Studies Studies pending at discharge: no Laboratory Results Lipid Panel Test 02/12/18 18:50 Range/Units Triglycerides Level 112 0-150 mg/dl Cholesterol Level 125 0-200 mg/dl HDL Cholesterol 38 mg/dl Cholesterol/HDL Ratio 3.3 LDL Cholesterol, Calculated 65 mg/dl Medical Emergencies . Who to Call and When: Medical Emergencies: If at any time you feel your situation is an emergency, please call 911 immediately. . Non-Emergent Contact Non-Emergency issues call your: Primary Care Provider . . "Provider Documentation" section prepared by Alexis Aguilar. .
[2018-02-14 13:51] VITALS: BP 115/63; PULSE 65; TEMP 36.4; O2SAT 96
--- NOTE | 2018-02-14 14:04 | Progress Note ---
Internal Med Progress Note Date of Service: Feb 14, 2018. Provider Documentation: SUBJECTIVE: RESTING COMFORTABLY DENIES ANY CHEST PAIN OR SOB CURRENTLY AFEBRILE NO NAUSEA NO COUGH HAS NECK PAIN OK FOR DISCHARGE OBJECTIVE: Vital Signs-as noted below Exam: General-alert and oriented. ENT-Normal hearing Neck-no neck masses Lungs-cta b/l no wheezing no crackles present Heart-S1 and S2 heard regular rate and rhythm no murmurs Abdomen-Soft bowel sounds present non tender no distension Extremities-no edema no erythema Neuro-alert and awake moves extremities Lab data as noted below. ASSESSMENT & PLAN: 1. Chest pain mostlikely uncontrolled blood pressure, anxiety. rule out acute coronary syndrome (hx of coronary artery disease as per records) serial ce negative echo unremarkable cardiology on board and appreciate inputs to f/u with out patient cardiology with in a week for stress test 2. Past tobacco abuse. 3. Chronic anemia, hemoglobin at baseline. 4. Sleep apnea on CPAP 5. HTn hypertensive urgency on Coreg 6.25mg bid Imdur ext rel 30mg po daily. started on enalapril 20mg daily Stopped ramipril f/u with pcp and cardiology 6. Neck pain ct cervical spine- moderate cervical spondylosis at multiple levels f/u with pcp ortho referral as per pcp Discharged home Vital Signs: Date Time Temp Pulse Resp B/P (MAP) Pulse Ox O2 Delivery O2 Flow Rate FiO2 02/14/18 13:51 36.4 65 18 96 Room Air 02/14/18 12:00 Room Air 02/14/18 11:24 36.4 65 18 115/63 (80) 96 Room Air 02/14/18 07:45 Room Air 02/14/18 07:27 36.6 74 18 128/73 (91) 94 02/14/18 04:00 Room Air 02/14/18 03:15 36.4 65 18 168/77 (107) 95 Room Air 02/13/18 23:59 Room Air 02/13/18 23:25 36.8 67 18 171/85 (113) 94 Room Air 02/13/18 20:00 Room Air 02/13/18 16:05 62 02/13/18 16:00 Room Air 02/13/18 15:19 36.6 62 16 122/77 (92) 94
[2018-02-14] MEDS ORDERED: ENAL20TA PO (14:13)
--- NOTE | 2018-02-14 18:12 | Discharge Summary ---
Discharge Summary Date of Service Feb 14, 2018. Discharge Summary Admission Date: Feb 12, 2018 at 20:50 Discharge Date: Feb 14, 2018 Discharge Disposition: Home Principal Diagnosis: CHEST PAIN HYPERTENSIVE URGENCY Secondary Diagnoses/Problems: CAD, hypertension, hyperlipidemia, past tobacco abuse, chronic anemia (baseline hemoglobin of 13), AZIZA on CPAP. Procedures: CT HEAD: No acute intracranial abnormality. CTA CHEST: 1. No evidence for aneurysm or dissection of the thoracic aorta. 2. Mild atherosclerotic change. 3. No evidence for pulmonary embolus. 4. Lungs are clear. CT CERVICAL SPINE: Skeletal structures: The skeletal structures are osteopenic. There is no evidence of fracture or subluxation involving the cervical spine. Vertebral body height is maintained. There is minimal anterolisthesis at C4-C5 and C6-C7, as well as minimal retrolisthesis at C5-C6. There is straightening of the cervical lordosis. Apparent curvature of the cervical spine is likely positional. The odontoid process and lateral masses are intact. The atlantoaxial articulation is preserved noting advanced productive degenerative change. The spinous processes appear intact. Degenerative endplate sclerosis is seen at C5-C6. A large hemangioma is noted in the body of C3. There is moderate to advanced multilevel cervical spondylosis. Uncovertebral and facet arthropathy contribute to neural foraminal stenosis at most levels. Intervertebral discs: There is moderate disc space narrowing at C2-C3. Moderate to advanced disc space narrowing is seen at C5-C6 and C6-C7. Central canal: Posterior disc osteophyte complexes at C4-C5, C5-C6, and C6-C7 may contribute to mild acquired compromise of the central canal. Soft tissues: The prevertebral and paraspinous soft tissues are within normal limits. Calvarium: The visualized calvarium at the skull base appears intact. Brain parenchyma: Partially visualized brain parenchyma the skull base is within normal limits. Sinuses and mastoids: There is opacification of the partially imaged left maxillary antrum. The sinus wall appears thickened and sclerotic suggesting chronicity. Trace mucosal thickening is noted in the visualized right maxillary antrum. The mastoid air cells are well pneumatized. Lung apices: Clear as visualized. IMPRESSION: 1. There is no evidence of fracture or subluxation involving the cervical spine. 2. Osteopenia and spondylotic change as above. ECHO: Normal LV chamber size with mild concentric LVH. * Normal LV systolic function, EF 55-60%. * No segmental left ventricular wall motion abnormalities are noted. * Grade I diastolic dysfunction. * Aortic valve sclerosis mild, without significant aortic valvular stenosis. * Mild left atrial enlargement. Consultations: CARDIOLOGY Medication Reconciliation New Medications: Enalapril Maleate (Enalapril Maleate) 20 Mg Tab 1 TAB PO DAILY, #30 TAB 1 Refill Continued Medications: Acetaminophen/Diphenhydramine (Tylenol Pm) 500 Mg/25 Mg Tab 2 TAB PO HS, TAB Aspirin (Aspirin Ec) 81 Mg Tab 81 MG PO DAILY Atorvastatin (Lipitor) 40 Mg Tab 40 MG PO QPM, TAB Calcium Carbonate-Vitamin D (Caltrate 600+D 600-400 mg-Unit) 1 Chw Chw 1 TAB PO DAILY Carvedilol (Coreg) 6.25 Mg Tab 6.25 MG PO BID, TAB Cyanocobalamin (Vitamin B-12) 500 Mcg Tab 500 MCG PO DAILY, TAB Digoxin (Digoxin) 0.125 Mg Tab 0.125 MG PO DAILY Ezetimibe (Zetia) 10 Mg Tab 10 MG PO QPM, TAB Ferrous Sulfate (Iron) 325 Mg Tab 325 MG PO DAILY Fish Oil ([place]-3) 1 Ea Cap 1 CAP PO DAILY, 0 Refills Fluoxetine (Prozac) 20 Mg Cap 20 MG PO DAILY, CAP TAKE WITH 10 MG CAP TO = 30 MG Fluoxetine Hcl (Prozac) 10 Mg Cap 10 MG PO DAILY, CAP TAKE WITH 20 MG CAP = 30 MG Isosorbide Mononitrate Ext Rel (Imdur Ext Rel) 60 Mg Ertab 30 MG PO QAM, TAB Lorazepam (Ativan) 1 Mg Tab 1 MG PO HS, TAB Multivitamins/Minerals (Mvi With Minerals) Tab 1 TAB PO DAILY, TAB Nitroglycerin (Nitrostat) 0.4 Mg Tab 0.4 MG UT PRN, 0 Refills Omeprazole (Prilosec) 20 Mg Capcr 20 MG PO QAM, 0 Refills Ranitidine (Zantac) 300 Mg Tab 300 MG PO HS, 0 Refills Discontinued Medications: Naproxen (Aleve) 220 Mg Tab 220 MG PO DAILY PRN for Pain, TAB Ramipril (Altace) 1.25 Mg Cap 1.25 MG PO DAILY Admission Information HPI (per Admitting provider): History obtained from patient and records. Medical history significant for CAD, hypertension, hyperlipidemia, past tobacco abuse, chronic anemia (baseline hemoglobin of 13), AZIZA on CPAP. Recent confinement under orthopedic service for left knee surgery. Last night, patient had achy epigastric discomfort going to the chest and left arm with some shortness of breath. Different from heartburn as per patient. Spontaneous resolution, vague headache symptoms. Flu-like illness a few weeks ago, currently resolving. Patient brought by family to the Emergency Room. He is currently comfortable. MEDICAL HISTORY: As above. Sees [facility], Dr. Terry. Last visit was September 2017, stable CAD as per outpatient note. 2D echo from 2015 also showed EF 60%, normal LA size, normal RA size. No mitral stenosis. LVH, diastolic dysfunction Physical Exam (per Admitting): VITAL SIGNS: Blood pressure noted to be 176/88, later 156/76, pulse 86, RR 18, temperature 36.6, sats 95 on room air. GENERAL: Slightly anxious, no respiratory distress. SKIN: Pallor, warm. HEENT: Alopecia. Pale palpebral conjunctiva. No ptosis. No dry mucosa. NECK: Short, supple, nontender. LUNGS: Decreased breath sounds. No tenderness. HEART: Regular rate and rhythm, no murmur. ABDOMEN: Soft, nontender. EXTREMITIES: No edema. No gross deformity. No tenderness. NEUROLOGIC: Coherent. No gross focality Hospital Course 1. Chest pain mostlikely uncontrolled blood pressure, anxiety. rule out acute coronary syndrome (hx of coronary artery disease as per records) serial ce negative echo unremarkable cardiology on board and appreciate inputs to f/u with out patient cardiology with in a week for stress test 2. Past tobacco abuse. 3. Chronic anemia, hemoglobin at baseline. 4. Sleep apnea on CPAP 5. HTn hypertensive urgency on Coreg 6.25mg bid Imdur ext rel 30mg po daily. started on enalapril 20mg daily Stopped ramipril f/u with pcp and cardiology 6. Neck pain ct cervical spine- moderate cervical spondylosis at multiple levels f/u with pcp ortho referral as per pcp Discharged home Total time spent on discharge = 35MINUTES This includes examination of the patient, discharge planning, medication reconciliation, and communication with other providers. Discharge Instructions Discharge Instructions Date of Service Feb 14, 2018. Admission Reason for Admission: Chest Pain Discharge Discharge Diagnosis / Problem: chest pain Discharge Goals Goal(s): Decrease discomfort, Improve function Activity Recommendations Activity Limitations: resume your previous activity . Instructions / Follow-Up Instructions / Follow-Up FOLLOWUP WITH FAMILY DOCTOR DR.MANISHA BLACKBURN ON February AT 2:30PM. FOLLOWUP WITH CARDIOLOGY WITH IN A WEEK FOR STRESS TEST. CHANGE IN MEDICATION: STOPPED RAMIPRIL STARTED ON ENALAPRIL 20MG DAILY. LAB : BMP IN 1-2 WEEKS STARTED ON ENALAPRIL AND FOLLOW RESULTS WITH FAMILY DOCTOR. Current Hospital Diet Patient's current hospital diet: AHA Diet (Heart Healthy) Discharge Diet Recommended Diet: AHA Diet (Heart Healthy) Pending Studies Studies pending at discharge: no Laboratory Results Lipid Panel Test 02/12/18 18:50 Range/Units Triglycerides Level 112 0-150 mg/dl Cholesterol Level 125 0-200 mg/dl HDL Cholesterol 38 mg/dl Cholesterol/HDL Ratio 3.3 LDL Cholesterol, Calculated 65 mg/dl Medical Emergencies . Who to Call and When: Medical Emergencies: If at any time you feel your situation is an emergency, please call 911 immediately. . Non-Emergent Contact Non-Emergency issues call your: Primary Care Provider
[2018-02-15] MEDS ORDERED: ENALAPRIL MALEATE 5 MG TAB PO SCH (09:00)
== END 2018-02-14 14:27 | disposition home or self-care (01) ==
LOC: C.EDB 18:05 → C.MED 20:50 → CANRESERV 21:10 → ENRESERV 21:10
PROVIDERS: ADMIT Internal Medicine; ATTEND Internal Medicine
DX: R07.9 Chest pain, unspecified (principal); I10 Essential (primary) hypertension; I25.10 Atherosclerotic heart disease of native coronary artery without angina pectoris; E78.5 Hyperlipidemia, unspecified; Z87.891 Personal history of nicotine dependence; D64.9 Anemia, unspecified; G47.33 Obstructive sleep apnea (adult) (pediatric); E78.00 Pure hypercholesterolemia, unspecified; K21.9 Gastro-esophageal reflux disease without esophagitis; Z79.82 Long term (current) use of aspirin; Z79.899 Other long term (current) drug therapy; Z90.49 Acquired absence of other specified parts of digestive tract; Z98.890 Other specified postprocedural states

== ENCOUNTER 2022-07-30 17:01 | Observation (INO) ==
[2022-07-30 17:43] LABS: Basophils # (auto) 0.03 K/uL (0-0.2); Basophils % (auto) 0.4 %; Eosinophils % (auto) 4.2 %; Hematocrit (blood only) 37.4 % (40.1-51.0); Hemoglobin 12.6 g/dl (14.0-18.0); Immature Granulocytes # (auto) 0.03 K/uL (0.00-0.02); Immature Granulocytes % (auto) 0.4 %; Lymphocytes % (auto) 26.6 %; Mean Corpuscular Hemoglobin 32.7 pg (25.0-34.0); Mean Corpuscular Hgb Conc 33.7 g/dL (32.0-36.0); Mean Corpuscular Volume 97.1 fL (80.0-100.0); Mean Platelet Volume 8.9 fL (9.4-12.4); Monocytes # (auto) 0.73 K/uL (0.24-0.82); Monocytes % (auto) 10.2 %; Neutrophils # (auto) 4.15 K/uL (1.4-6.5); Neutrophils % (auto) 58.2 %; Platelet Count 158 K/uL (130-400); RDW Coefficient of Variation 12.3 % (11.5-14.5); RDW Standard Deviation 44.3 fL (36.4-46.3); Red Blood Count 3.85 M/uL (4.63-6.08); White Blood Count 7.14 K/ul (4.8-10.8)
--- NOTE | 2022-07-30 17:43 | Emergency Department Note ---
History of Present Illness General Chief complaint: Illness Stated complaint: CHEST PAIN, PRESSURE, L ARM NUMB, HEADACHE Time Seen by Provider: 07/30/22 17:25 Source: patient and family Mode of arrival: ambulatory Limitations: no limitations History of Present Illness Provider complaint: Chest pain, left arm numbness, nausea Onset (ago): week(s) 1 Maximum Pain Intensity: 0 This is an 82-year-old male presents emergency department with multiple complaints that have been evolving over the course of the last week. Patient states the beginning of the week he began noticing some slight increased fatigue with his usual activities. He states as the week progressed he began noticing intermittent left-sided chest pain that would radiate into the back as well as accompanying nausea, left arm numbness, dizoccasionally intermittently also occurred at rest, but are mostly with exertion. Patient does follow with cardiology. He has had prior catheterizations, he believes the last heart catheterization was approximately 6 years ago. He states he does periodically see a equities trader. He does have nitro but did not try the nitro until today upon his daughter's insistence. He does not feel that the nitro took away his chest pain. He denies any recent fevers, chills, or URI symptoms. He denies any dietary changes. States despite the nausea he has not had any vomiting or change in stools. He denies any lower extremity swelling. Pt seen during a time of high acuity and national emergency pandemic while wearing PPE. Home Medications Medication Instructions Recorded Confirmed Type albuterol sulfate 90 mcg/actuation 2 puff inhalation Q4H PRN 07/30/22 07/30/22 History aerosol inhaler Shortness Of Breath Or Wheezing aspirin 81 mg tablet,delayed 81 mg PO DAILY 07/30/22 07/30/22 History release atorvastatin 40 mg tablet 40 mg PO QPM 07/30/22 07/30/22 History calcium carbonate 600 mg-vitamin 1 tab PO DAILY 07/30/22 07/30/22 History D3 5 mcg (200 unit) tablet carvedilol 3.125 mg tablet 3.125 mg PO BID 07/30/22 07/30/22 History cholecalciferol (vitamin D3) 25 25 mcg PO DAILY 07/30/22 07/30/22 History mcg (1,000 unit) tablet cyanocobalamin (vitamin B-12) 1,000 mcg PO DAILY 07/30/22 07/30/22 History 1,000 mcg tablet digoxin 125 mcg (0.125 mg) tablet 125 mcg PO QAM 07/30/22 07/30/22 History diphenhydramine 25 1 tab PO HS PRN Pain 07/30/22 07/30/22 History mg-acetaminophen 500 mg tablet (Tylenol PM Extra Strength) enalapril maleate 20 mg tablet 20 mg PO DAILY 07/30/22 07/30/22 History ezetimibe 10 mg tablet 10 mg PO DAILY 07/30/22 07/30/22 History famotidine 40 mg tablet 40 mg PO DAILY 07/30/22 07/30/22 History ferrous sulfate 325 mg (65 mg 325 mg PO BID 07/30/22 07/30/22 History iron) tablet (Iron (ferrous sulfate)) fluoxetine 10 mg capsule 10 mg PO DAILY 07/30/22 07/30/22 History fluoxetine 20 mg capsule 20 mg PO DAILY 07/30/22 07/30/22 History fluticasone furoate 200 1 inh inhalation DAILY 07/30/22 07/30/22 History mcg-vilanterol 25 mcg/dose inhalation powder (Breo Ellipta) isosorbide mononitrate 30 mg 30 mg PO QAM 07/30/22 07/30/22 History tablet,extended release 24 hr lorazepam 0.5 mg tablet 0.5 mg PO HS 07/30/22 07/30/22 History multivitamin 1 tab PO DAILY 07/30/22 07/30/22 History nitroglycerin 0.4 mg sublingual 0.4 mg sublingual .PRN/UD 07/30/22 07/30/22 History tablet omega-3 fatty acids 1,000 mg 1,000 mg PO DAILY 07/30/22 07/30/22 History capsule omeprazole 40 mg capsule,delayed 40 mg PO BID #28 caps 07/31/22 07/30/22 Rx release Allergies Allergy/AdvReac Type Severity Reaction Status Date / Time ketorolac AdvReac Severe hallucinati Verified 07/30/22 20:25 ons Past Med/Surg History Medical History (Updated 07/31/22 @ 10:48 by Hannah Casey PA-C) Chest pain High cholesterol History of angina Hypertension Family History Other Family history non-contributory Social History Smoking Status: Never smoker Hx Alcohol Use: No Hx Substance Use: No Preferred Language: Citizen Of [place] Communication Ability: Effective Museum Exhibit Designer Required: No Beliefs That Will Affect Care: None Current Living Situation: Spouse and Family Current Living Situation Comment: Pt lives with spouse, son and [id number] Other Information That Helps Us Care for You: No Feels Safe at Home: Yes Safety Concerns: Feels Safe At This Time Assistive Devices: Denture - Upper, Denture - Lower and Glasses Review of Systems A total of 10 systems reviewed and were otherwise negative All systems reviewed & are unremarkable except as noted in HPI & below Physical Exam Vital Signs Vital Signs - 24 hr 07/30/22 17:11 07/30/22 17:34 07/30/22 19:00 Temperature 36.8 C Temperature Source Temporal Artery Scan Pulse Rate 73 Pulse Rate [Apical] 62 Pulse Rhythm [Apical] Regular Pulse Strength [Apical] Normal Respiratory Rate 16 16 Respiratory Effort / Characteristics Non-Labored Spontaneous Respiratory Depth Normal Respiratory Pattern Regular Blood Pressure 143/77 H Blood Pressure [Left Arm] 133/74 Blood Pressure Mean 99 Blood Pressure Mean [Left Arm] 93 Pulse Oximetry 97 97 97 Oxygen Delivery Method Room Air Room Air Room Air Sepsis Recent Fever Within 48 Hours No Sepsis New/Unexplained Change in Mental Status No Sepsis Action Taken by Nursing No Action Required GENERAL: alert, well appearing, well nourished, no distress, non-toxic EYE EXAM: normal conjunctiva, PERRL and EOM's grossly intact OROPHARYNX: no exudate, no erythema, lips, buccal mucosa, and tongue normal and mucous membranes are moist NECK: supple, no nuchal rigidity, no adenopathy, non-tender LUNGS: Clear to auscultation. Normal chest wall mechanics, no w/r/r HEART: no murmurs, S1 normal and S2 normal, no chest wall tenderness with palpation ABDOMEN: abdomen soft, non-tender, normo-active bowel sounds, no masses, no rebound or guarding. BACK: Back is symmetrical on inspection and there is no deformity, no midline tenderness, no CVA tenderness. SKIN: no rashes and no bruising UPPER EXTREMITIES: upper extremities are grossly normal. FROM, nml pulses b/l. LOWER EXTREMITIES: No pitting edema. FROM, nml pulses b/l. NEURO EXAM: Normal sensorium, cranial nerves II-XII grossly intact, normal speech, no gross weakness of arms, no gross weakness of legs. Gross sensation intact. Course Administered Medications Discontinued Medications Acetaminophen (Acetaminophen 325 Mg Tab) 650 mg PO NOW STA Stop: 07/30/22 19:18 Last Admin: 07/30/22 19:23 Dose: 650 mg Documented By: IRENE Aspirin (Aspirin 81 Mg Ectab) 81 mg PO DAILY TORREY Stop: 08/30/22 08:59 Last Admin: 07/31/22 07:55 Dose: 81 mg Documented By: SE Atorvastatin Calcium (Atorvastatin 40 Mg Tab) 40 mg PO QPM TORREY Stop: 08/29/22 21:44 Last Admin: 07/30/22 22:09 Dose: 40 mg Documented By: MARIA GUADALUPE Atropine Sulfate (Atropine Sulfate 0.1 Mg/Ml 10ml Syr) Confirm Administered Dose 2 mg IV .STK-MED ONE Stop: 07/31/22 10:38 Last Admin: 07/31/22 12:02 Dose: Not Given Documented By: SE Carvedilol (Carvedilol 3.125 Mg Tab) 3.125 mg PO BID TORREY Stop: 08/29/22 21:44 Last Admin: 07/31/22 07:58 Dose: 3.125 mg Documented By: Admin: 07/30/22 22:09 Dose: 3.125 mg Documented By: MARIA GUADALUPE Cyanocobalamin (Cyanocobalamin (B-12) 500 Mcg Tablet) 1,000 mcg PO DAILY TORREY Stop: 08/30/22 08:59 Last Admin: 07/31/22 07:56 Dose: 1,000 mcg Documented By: SE Digoxin (Digoxin 0.125 Mg Tab) 0.125 mg PO QAM TORREY Stop: 08/30/22 08:59 Last Admin: 07/31/22 07:57 Dose: 0.125 mg Documented By: SE Dobutamine HCl (Dobutamine Hcl 12.5 Mg/Ml 20 Ml Vial) Confirm Administered Dose 250 mg IV .STK-MED ONE Stop: 07/31/22 10:38 Last Admin: 07/31/22 12:02 Dose: Not Given Documented By: SE Ezetimibe (Ezetimibe 10 Mg Tablet) 10 mg PO DAILY TORREY Stop: 10/12/22 08:59 Last Admin: 07/31/22 07:57 Dose: 10 mg Documented By: SE Enalapril Maleate (Enalapril Maleate 10 Mg Tab) 20 mg PO DAILY TORREY Stop: 08/30/22 08:59 Last Admin: 07/31/22 07:57 Dose: 20 mg Documented By: SE Famotidine (Famotidine 40 Mg Tablet) 40 mg PO DAILY TORREY Stop: 08/30/22 08:59 Last Admin: 07/31/22 07:57 Dose: 40 mg Documented By: SE Fluoxetine HCl (Fluoxetine Hcl 10 Mg Cap) 10 mg PO DAILY TORREY Stop: 08/30/22 08:59 Last Admin: 07/31/22 07:56 Dose: 10 mg Documented By: SE Fluoxetine HCl (Fluoxetine Hcl 20 Mg Cap) 20 mg PO DAILY TORREY Stop: 08/30/22 08:59 Last Admin: 07/31/22 07:55 Dose: 20 mg Documented By: SE Fluticasone/Vilanterol (Fluticasone/Vilanterol 200/25mcg 14 Puffs/Inhaler) 1 puffs INH QDR TORREY Stop: 08/30/22 08:59 Last Admin: 07/31/22 09:54 Dose: 1 puffs Documented By: SE Heparin Sodium (Porcine) (Heparin Sod 5,000 Unit/0.5 Ml Vial) 5,000 units SQ Q12 TORREY Stop: 08/29/22 21:59 Last Admin: 07/31/22 07:57 Dose: 5,000 units Documented By: Admin: 07/30/22 22:12 Dose: 5,000 units Documented By: MARIA GUADALUPE Sodium Chloride (Nss 1000ml) 1,000 mls @ 80 mls/hr IV .[id number] TORREY Stop: 07/31/22 16:58 Last Infusion: 07/31/22 12:37 Dose: 0 mls/hr Documented By: Admin: 07/31/22 09:55 Dose: 80 mls/hr Documented By: Infusion: 07/31/22 09:30 Dose: 80 mls/hr Documented By: Infusion: 07/30/22 21:00 Dose: 80 mls/hr Documented By: MARIA GUADALUPE Admin: 07/30/22 17:47 Dose: 125 mls/hr Documented By: TANESHA Ioversol (Optiray 300 500ml) 101 ml IV ONCE ONE Stop: 07/30/22 18:22 Last Admin: 07/30/22 18:24 Dose: 101 ml Documented By: EMERSON Isosorbide Mononitrate (Isosorbide Carroll Extended Rel 30 Mg Tabcr) 30 mg PO QAM TORREY Stop: 08/30/22 08:59 Last Admin: 07/31/22 07:56 Dose: 30 mg Documented By: SE Lorazepam (Lorazepam 0.5 Mg Tab) 0.5 mg PO HS TORREY Stop: 08/29/22 21:59 Last Admin: 07/30/22 22:17 Dose: 0.5 mg Documented By: MARIA GUADALUPE Metoprolol Tartrate (Metoprolol Tartrate 1 Mg/Ml Vial) Confirm Administered Dose 10 mg IV .STK-MED ONE Stop: 07/31/22 10:38 Last Admin: 07/31/22 12:02 Dose: Not Given Documented By: SE Multivitamins/Minerals (Calcium 600mg + Vit D 400 Iu Tab) 1 tab PO DAILY TORREY; Protocol Stop: 08/30/22 08:59 Last Admin: 07/31/22 07:56 Dose: 1 tab Documented By: SE Pantoprazole Sodium (Pantoprazole 40 Mg Tab) 40 mg PO DAILY TORREY; Protocol Stop: 08/30/22 08:59 Last Admin: 07/31/22 07:56 Dose: 40 mg Documented By: SE Pneumococcal Polyvalent Vaccine (Pneumococcal Polysaccharides 25 Mcg/0.5 Ml Vial/Syr) 25 mcg IM .ONCE ONE Stop: 07/30/22 21:33 Last Admin: 07/30/22 22:10 Dose: 25 mcg Documented By: MARIA GUADALUPE Medical Decision Making Differential Diagnosis Differential diagnoses includes but is not limited to acute coronary syndrome, myocardial infarction, pericarditis, pulmonary embolus, aortic dissection, pneumonia, pneumothorax, musculoskeletal, shingles, esophageal. Medical Records Attestation: I reviewed the patient's medical records. Home Medications Current Medication List: was personally reviewed by me Laboratory Data Attestation: I reviewed the patient's lab results. Result diagrams: 07/31/22 02:31 07/31/22 02:31 Lab Results 07/30/22 07/30/22 07/30/22 Range/Units 17:30 17:30 17:30 WBC 7.14 (4.8-10.8) K/ul RBC 3.85 L (4.63-6.08) M/uL Hgb 12.6 L (14.0-18.0) g/dl Hct 37.4 L (40.1-51.0) % MCV 97.1 (80.0-100.0) fL MCH 32.7 (25.0-34.0) pg MCHC 33.7 (32.0-36.0) g/dL RDW Std Deviation 44.3 (36.4-46.3) fL RDW Coeff of Juice 12.3 (11.5-14.5) % Plt Count 158 (130-400) K/uL MPV 8.9 L (9.4-12.4) fL Immature Gran % (Auto) 0.4 % Neut % (Auto) 58.2 % Lymph % (Auto) 26.6 % Carroll % (Auto) 10.2 % Eos % (Auto) 4.2 % Baso % (Auto) 0.4 % Neut # (Auto) 4.15 (1.4-6.5) K/uL Lymph # (Auto) 1.90 (1.2-3.4) K/uL Carroll # (Auto) 0.73 (0.24-0.82) K/uL Eos # (Auto) 0.30 (0-0.50) K/uL Baso # (Auto) 0.03 (0-0.2) K/uL Immature Gran # (Auto) 0.03 H (0.00-0.02) K/uL Sodium 136 (136-145) mmol/L Potassium 4.5 (3.5-5.1) mmol/L Chloride 105 (98-107) mmol/L Carbon Dioxide 25 (21-32) mmol/L Anion Gap 6 (3-11) BUN 17 (6-23) mg/dl Creatinine 1.02 (0.6-1.4) mg/dl Est Cr Clr Drug Dosing 55.8 ml/min Est GFR ( Amer) 79.0 ml/min Est GFR (Non-Af Amer) 68.1 ml/min BUN/Creatinine Ratio 16.7 (10-20) Glucose 94 (70-99(Fasting)) mg/dl Calcium 9.3 (8.5-10.1) mg/dl Magnesium 2.0 (1.7-2.4) mg/dl Total Bilirubin 0.8 (0.2-1.0) mg/dl AST 21 (13-39) U/L ALT 20 (7-52) U/L Alkaline Phosphatase 62 (34-104) U/L Troponin I High Sens 7.3 (0-20) pg/ml Total Protein 6.4 (6.0-8.3) gm/dl Albumin 4.0 (3.4-5.0) gm/dl Globulin 2.4 L (2.5-4.0) gm/dl Albumin/Globulin Ratio 1.7 (0.9-2) Lipase 11 (11-82) U/L TSH 3.702 (0.300-4.500) uIu/ml Lyme Disease IgG Ab (Negative) Lyme Disease IgM Ab (Negative) SARS-CoV-2, RNA, NAAT (NEGATIVE) 07/30/22 07/30/22 Range/Units 17:30 19:22 WBC (4.8-10.8) K/ul RBC (4.63-6.08) M/uL Hgb (14.0-18.0) g/dl Hct (40.1-51.0) % MCV (80.0-100.0) fL MCH (25.0-34.0) pg MCHC (32.0-36.0) g/dL RDW Std Deviation (36.4-46.3) fL RDW Coeff of Juice (11.5-14.5) % Plt Count (130-400) K/uL MPV (9.4-12.4) fL Immature Gran % (Auto) % Neut % (Auto) % Lymph % (Auto) % Carroll % (Auto) % Eos % (Auto) % Baso % (Auto) % Neut # (Auto) (1.4-6.5) K/uL Lymph # (Auto) (1.2-3.4) K/uL Carroll # (Auto) (0.24-0.82) K/uL Eos # (Auto) (0-0.50) K/uL Baso # (Auto) (0-0.2) K/uL Immature Gran # (Auto) (0.00-0.02) K/uL Sodium (136-145) mmol/L Potassium (3.5-5.1) mmol/L Chloride (98-107) mmol/L Carbon Dioxide (21-32) mmol/L Anion Gap (3-11) BUN (6-23) mg/dl Creatinine (0.6-1.4) mg/dl Est Cr Clr Drug Dosing ml/min Est GFR ( Amer) ml/min Est GFR (Non-Af Amer) ml/min BUN/Creatinine Ratio (10-20) Glucose (70-99(Fasting)) mg/dl Calcium (8.5-10.1) mg/dl Magnesium (1.7-2.4) mg/dl Total Bilirubin (0.2-1.0) mg/dl AST (13-39) U/L ALT (7-52) U/L Alkaline Phosphatase (34-104) U/L Troponin I High Sens (0-20) pg/ml Total Protein (6.0-8.3) gm/dl Albumin (3.4-5.0) gm/dl Globulin (2.5-4.0) gm/dl Albumin/Globulin Ratio (0.9-2) Lipase (11-82) U/L TSH (0.300-4.500) uIu/ml Lyme Disease IgG Ab Negative (Negative) Lyme Disease IgM Ab Negative (Negative) SARS-CoV-2, RNA, NAAT NEGATIVE (NEGATIVE) Imaging Data My Impression: X-ray: I interpreted the following studies. Chest: A single view study of the chest was reviewed and was negative for cardiomegaly, focal infiltrate, effusion, pulmonary edema, or wide mediastinum. Radiologist's Impression: Chest CTA 07/30/22 17:37 CT angio chest dissec wo/w con HISTORY: 82 years-old Male chest pain into back acute chest and back pain COMPARISON: CTA chest 03/04/2019 TECHNIQUE: CTA of the chest was obtained both with and without the use of 101 mL Optiray. 3-D coronal and sagittal MIPS were obtained from the axial data set and were submitted for review. All measurements were obtained according to NASCET criteria. A dose lowering technique was used consistent with the principals of [facility]. FINDINGS: CTA: Mild cardiac megaly without pericardial effusion. Moderate coronary artery roberto cifications. Atherosclerosis of the thoracic aorta without aneurysm or dissection. There is patency of the imaged great vessels. Unremarkable pulmonary artery. No pulmonary emboli identified. No mediastinal or intramural hematoma. CT CHEST: Heterogeneous thyroid. No lymphadenopathy. No pneumothorax, pleural effusion, airspace consolidation or overt pulmonary edema. No suspicious pulmonary nodule or mass. Mild subsegmental bibasilar atelectasis. Central airways are patent. Mild nonspecific distal esophageal wall thickening. Cholecystectomy. Unremarkable soft tissues. No acute fracture. IMPRESSION: Unremarkable CTA of the chest. No thoracic aortic aneurysm or dissection. ACT 112: Negative or not required by law. The above report was generated using voice recognition software. It may contain grammatical, syntax or spelling errors. Electronically signed by: Daniel Waddell M.D. 07/30/2022 6:58 PM ECG Data Attestation: I personally reviewed and interpreted this ECG as follows: Indication: + chest pain Rate (beats per minute): 64 Rhythm: + normal sinus ECG Intervals/blocks: + Normal QRS and + Normal QT ECG Ada: + Normal ECG ST segments: + Nonspecific ST abnormalities MDM Narrative HEART score 5 An order was placed for continuous cardiac monitoring. The monitor shows a rate of _70__ with _normal sinus__ rhythm. This is an 82 yo male who presents with concerning symptoms of exertional chest pain, radiating into LUE/back, with other accompanying symptoms. VS stable. No recent illness or trauma. Labs drawn and sent and were reassuring. CTA reassuring. I discussed results and ddx with the patient and family. Given evolving and worsening symptoms, risk factors and elevated HEART score, discussed additional inpatient evaluation. Case discussed with the hospitalist. Impression & Plan Chest pain, Paresthesia of left arm Discharge Plan Visit Data Chief Complaint: Illness Stated Complaint: CHEST PAIN, PRESSURE, L ARM NUMB, HEADACHE ED Provider: June Myles Discharge Problem: Chest pain, Paresthesia of left arm Patient Disposition: Admitted As Inpatient Discharge Instructions Interventions: ED Discharge Assessment Last Done: 07/30/22 21:02
[2022-07-30] MEDS: SODIUM CHLORIDE 0.9% 1000ML 1,000 ML IV SCH (17:47)
[2022-07-30 18:09] LABS: Albumin Globulin Ratio 1.7 (0.9-2); BUN Creatinine Ratio 16.7 (10-20); Bilirubin,Total 0.8 mg/dl (0.2-1.0); Calcium 9.3 mg/dl (8.5-10.1); Creatinine Clr Calc Pharmacy 55.8 ml/min; Est GFR (Non-African American) 68.1 ml/min; Globulin 2.4 gm/dl (2.5-4.0); Potassium 4.5 mmol/L (3.5-5.1); Total Protein 6.4 gm/dl (6.0-8.3)
[2022-07-30 18:13] LABS: Troponin I High Sensitivity 7.3 pg/ml (0-20)
[2022-07-30 18:18] LABS: Lyme Ab IgG w/WB Rflx Negative (Negative); Lyme Ab IgM w/WB Rflx Negative (Negative)
[2022-07-30] MEDS ORDERED: OPTIRAY 300 500mL IV ONE (18:21)
--- NOTE | 2022-07-30 19:01 | CT Scan Report ---
CT angio chest dissec wo/w con HISTORY: 82 years-old Male chest pain into back acute chest and back pain COMPARISON: CTA chest 03/04/2019 TECHNIQUE: CTA of the chest was obtained both with and without the use of 101 mL Optiray. 3-D coronal and sagittal MIPS were obtained from the axial data set and were submitted for review. All measureme nts were obtained according to NASCET criteria. A dose lowering technique was used consistent with e principals of [facility]. FINDINGS: CTA: Mild cardiac megaly without pericardial effusion. Moderate coronary artery calcifications. Atheroscl erosis of the thoracic aorta without aneurysm or dissection. There is patency of the imaged great ves sels. Unremarkable pulmonary artery. No pulmonary emboli identified. No mediastinal or intramural hem atoma. CT CHEST: Heterogeneous thyroid. No lymphadenopathy. No pneumothorax, pleural effusion, airspace consolidation or overt pulmonary edema. No suspicious pulmonary nodule or mass. Mild subsegmental bibasilar atelect asis. Central airways are patent. Mild nonspecific distal esophageal wall thickening. Cholecystectomy. Unremarkable soft tissues. No ac southern ute fracture. IMPRESSION: Unremarkable CTA of the chest. No thoracic aortic aneurysm or dissection. ACT 112: Negative or not required by law. The above report was generated using voice recognition software. It may contain grammatical, syntax o r spelling errors. Electronically signed by: Daniel Waddell M.D. 07/30/2022 6:58 PM
[2022-07-30] MEDS ORDERED: ACETAMINOPHEN 325 MG TAB PO STA (19:17)
[2022-07-30] MEDS ORDERED: NITROGLYCERIN SL 0.4 MG/TAB TAB SL PRN (19:59)
[2022-07-30] MEDS ORDERED: ALUMINUM/MAGNESIUM SUSP 30 ML UDC PO PRN (19:59)
[2022-07-30] MEDS ORDERED: ACETAMINOPHEN 325 MG TAB PO PRN (19:59)
[2022-07-30] MEDS ORDERED: POLYETHYLENE (MIRALAX) 17 GM PACK PO PRN (19:59)
[2022-07-30] MEDS ORDERED: ONDANSETRON INJ 2 MG/ML 2 ML VIAL IV PRN (19:59)
--- NOTE | 2022-07-30 20:01 | History & Physical Report ---
Date of Service July 30, 2022 Assessment & Plan (1) Chest pain: Plan Chest discomfort rule out ACS Fatigue/dyspnea with exertion Patient came in with evolution of symptoms over the course of last 1 week including chest discomfort [see HPI] Admitting EKG w/ nonspecific ST abn, admitting Trope 7.3, admitting CTA chest with no PE or infection. Patient had remote history of heart cath with coronary artery disease of a small vessel per patient's daughter at bedside. Trend troponin, echo, BNP, cardiology consult, telemetry monitoring. NPO midnight Other chronic medical conditions: HTN/GERD/HLD/CAD --> medications reviewed with the patient, continue with/resume home meds as and when appropriate. DVT prophylaxis: Heparin Full code History of Present Illness Chief Complaint: Chest discomfort with exertion Primary Care Provider: Zainab Raya MD 82-year-old male with PMH of GERD, CAD, HTN, HLD, AZIZA, occupational lung disease, SNHL presented to our ED 07/30 with complaint of chest discomfort. Per patient, it started as fatigue with exertion about a week ago, then developed into left chest pain with radiation to back associated with tingling sensation in left arm, patient would feel winded and nauseated especially with activity and had chest pain 1-2 times during rest, progressively worsening especially with regard to frequency, intensity being around 3-5 over 10 as a pressure sensation. Patient denies any fever/sore throat/cough/palpitations/belly pain/acute changes in his bowel or bladder habit. Patient reports some headache after receiving nitro in the ED. Patient denies use of alcohol or recreational drugs. Patient was a former smoker, quit 11/19/1969. Full code Medications reviewed with patient's daughter at bedside. Allergies Allergy/AdvReac Type Severity Reaction Status Date / Time ketorolac AdvReac Severe hallucinati Verified 07/30/22 20:25 ons Home Medications Medication Instructions Recorded Confirmed Type albuterol sulfate 90 mcg/actuation 2 puff inhalation Q4H PRN 07/30/22 07/30/22 History aerosol inhaler Shortness Of Breath Or Wheezing aspirin 81 mg tablet,delayed 81 mg PO DAILY 07/30/22 07/30/22 History release atorvastatin 40 mg tablet 40 mg PO QPM 07/30/22 07/30/22 History calcium carbonate 600 mg-vitamin 1 tab PO DAILY 07/30/22 07/30/22 History D3 5 mcg (200 unit) tablet carvedilol 3.125 mg tablet 3.125 mg PO BID 07/30/22 07/30/22 History cholecalciferol (vitamin D3) 25 25 mcg PO DAILY 07/30/22 07/30/22 History mcg (1,000 unit) tablet cyanocobalamin (vitamin B-12) 1,000 mcg PO DAILY 07/30/22 07/30/22 History 1,000 mcg tablet digoxin 125 mcg (0.125 mg) tablet 125 mcg PO QAM 07/30/22 07/30/22 History diphenhydramine 25 1 tab PO HS PRN Pain 07/30/22 07/30/22 History mg-acetaminophen 500 mg tablet (Tylenol PM Extra Strength) enalapril maleate 20 mg tablet 20 mg PO DAILY 07/30/22 07/30/22 History ezetimibe 10 mg tablet 10 mg PO DAILY 07/30/22 07/30/22 History famotidine 40 mg tablet 40 mg PO DAILY 07/30/22 07/30/22 History ferrous sulfate 325 mg (65 mg 325 mg PO BID 07/30/22 07/30/22 History iron) tablet (Iron (ferrous sulfate)) fluoxetine 10 mg capsule 10 mg PO DAILY 07/30/22 07/30/22 History fluoxetine 20 mg capsule 20 mg PO DAILY 07/30/22 07/30/22 History fluticasone furoate 200 1 inh inhalation DAILY 07/30/22 07/30/22 History mcg-vilanterol 25 mcg/dose inhalation powder (Breo Ellipta) isosorbide mononitrate 30 mg 30 mg PO QAM 07/30/22 07/30/22 History tablet,extended release 24 hr lorazepam 0.5 mg tablet 0.5 mg PO HS 07/30/22 07/30/22 History multivitamin 1 tab PO DAILY 07/30/22 07/30/22 History nitroglycerin 0.4 mg sublingual 0.4 mg sublingual .PRN/UD 07/30/22 07/30/22 History tablet omega-3 fatty acids 1,000 mg 1,000 mg PO DAILY 07/30/22 07/30/22 History capsule omeprazole 40 mg capsule,delayed 40 mg PO DAILY 07/30/22 07/30/22 History release Past Med/Surg History Medical History (Updated 07/30/22 @ 19:20 by June Myles DO) Chest pain High cholesterol History of angina Hypertension Family History Other Family history non-contributory Social History Smoking Status: Never smoker Preferred Language: Qatari Feels Safe at Home: Yes Review of Systems Review of Systems: Negative otherwise mentioned in HPI. Physical Exam Physical Exam: GENERAL: Alert and oriented x3. NAD, on RA. HEENT: No pallor, no icterus. Pupils equal, round and reactive to light. Oral mucosa moist. NECK: No JVD, no neck masses. HEART: S1 and S2 heard. Regular rate and rhythm. No murmur, no gallop. RESPIRATORY SYSTEM: Normal AP diameter. No accessory muscle use. No wheezing, no crackles. ABDOMEN: Soft, bowel sounds present, nontender, no distention. CENTRAL NERVOUS SYSTEM: No facial droop. Speech is clear. Obeys simple commands. Moves extremities. EXTREMITIES: Trace to 1+ BLE edema, no erythema seen. Results & Data Results & Data ([facility]) Vital Signs (Past 12 Hours) Vital Signs Temp Pulse Pulse Resp BP BP Pulse Ox 07/30/22 19:00 62 16 133/74 97 07/30/22 17:34 97 07/30/22 17:11 36.8 C 73 16 143/77 H 97 O2 Del Method 07/30/22 19:00 Room Air 07/30/22 17:34 Room Air 07/30/22 17:11 Room Air
[2022-07-30] MEDS ORDERED: PNEUMOCOCCAL POLYSACCHARIDES 25 MCG/0.5 ML VIAL/SYR IM ONE (21:32)
[2022-07-30] MEDS ORDERED: ATORVASTATIN 40 MG TAB PO SCH (21:45)
[2022-07-30] MEDS ORDERED: diphenhydrAMINE Capsule 25 MG CAP PO PRN (21:56)
[2022-07-30] MEDS ORDERED: LORazepam 0.5 MG TAB PO SCH (22:00)
[2022-07-30] MEDS: carvediloL 3.125 MG TAB PO SCH (22:09)
[2022-07-30] MEDS: HEPARIN SOD 5,000 UNIT/0.5 ML VIAL SQ SCH (22:12)
[2022-07-31 02:48] LABS: Hematocrit (blood only) 33.1 % (40.1-51.0); Hemoglobin 11.3 g/dl (14.0-18.0); Mean Corpuscular Hemoglobin 32.8 pg (25.0-34.0); Mean Corpuscular Hgb Conc 34.1 g/dL (32.0-36.0); Mean Corpuscular Volume 95.9 fL (80.0-100.0); Mean Platelet Volume 8.8 fL (9.4-12.4); Platelet Count 141 K/uL (130-400); RDW Coefficient of Variation 12.5 % (11.5-14.5); RDW Standard Deviation 43.8 fL (36.4-46.3); Red Blood Count 3.45 M/uL (4.63-6.08); White Blood Count 6.35 K/ul (4.8-10.8)
[2022-07-31 03:15] LABS: BUN Creatinine Ratio 18.3 (10-20); Calcium 8.6 mg/dl (8.5-10.1); Creatinine Clr Calc Pharmacy 54.8 ml/min; Est GFR (African American) 77.1 ml/min; Est GFR (Non-African American) 66.6 ml/min; Phosphorus 3.4 mg/dl (2.5-4.9); Potassium 4.2 mmol/L (3.5-5.1); Troponin I High Sensitivity 10.7 pg/ml (0-20)
[2022-07-31] MEDS: HEPARIN SOD 5,000 UNIT/0.5 ML VIAL SQ SCH (07:57)
[2022-07-31] MEDS: carvediloL 3.125 MG TAB PO SCH (07:58)
--- NOTE | 2022-07-31 08:53 | Cardiology Consultation ---
Date of Consultation July 31, 2022 Assessment & Plan (1) Chest pain: (2) CAD (coronary artery disease): (3) Hypertension: Plan Patient admitted for intermittent chest pain, possible angina. No acute EKG changes. HS troponin negative x3. Currently chest pain free. Resting echo results pending. He has a history of moderate non obstructive CAD within the LAD and RCA in 2016 per cath in [place]. Med management recommended. Recommend proceeding with dobutamine stress echo to r/o inducible ischemia. his BP was elevated on arrival, but trending down with home meds. Currently controlled. Continue ASA, statin, zetia, carvedilol, enalapril, digoxin, isosorbide. Keep NPO. Case discussed with Dr. Acuña. Further recommendations pending results of dobutamine stress echo. Supervising Physician Co-Signing Physician Notes Supervising Physician Attestation: I have personally performed a history and physical examination on the patient. I agree with the physician back office medical assistant's findings and plan as documented with the following additions. Subjective: Patient seen prior to, during, post dobutamine stress echocardiogram. No subjective complaints at the time of my assessment. Sinus rhythm noted on surveillance system monitor. Exam: Regular rhythm, no murmurs, no edema Data: Resting echocardiogram revealed normal left ventricular wall motion and normal LVEF. Patient underwent dobutamine stress echocardiogram. Mild equivocal EKG changes were noted with 0.5 to 1 mm horizontal and upsloping ST segment depression limited to leads I and II, that did not meet criteria for ischemia. Normal augmentation of the left ventricle observed with the administration of dobutamine and atropine having reached target heart rate. No symptoms suggestive angina were reported during test. Patient's presenting symptoms were not reproduced. Assessment and Plan: Chest discomfort, perhaps due to dyspepsia. -Dobutamine stress echocardiogram reassuring. -Patient stable from a cardiac perspective for discharge. Continue outpatient medications for ongoing risk factor modification. Raymundo Acuña DO History of Present Illness Reason for Consultation: Chest pain Requesting Physician: Dr. Momin Attending Physician: Dr. Acuña History of Present Illness Patient is an 82 year old male, known to [facility], recently transferring care from [place] with Dr. Terry. History includes: 1. Moderate non obstructive CAD per last cath in [place] in 2015 with 40% LAD, 50% D1 and 50% RCA stenosis. LVEF 45% at that time and medical management recomm ended. 2. Improved LVEF per last echo at [facility] in February 2021 with EF 60-65%, no wall motion abnormalities 3. Left sided carotid stenosis 50-69% per carotid duplex in May 2022. 4. Hypertension 5. dyslipidemia Patient reports intermittent left sided chest ache over the last several days. Occurred at rest and with ambulation. Resolving with rest. Described as a dull ache with intermittent radiation to his left arm. Due to recurrent symptoms he came to ER for evaluation. EKG on arrival without acute changes. HS troponin negative x4 since admission. At time of consult patient feeling well. Reports he felt he may have had GI issue with increased gas over the last few days contributing to his symptoms. No recurrent chest pain since admission. Currently resting in bed comfortably without complaints. Allergies Allergy/AdvReac Type Severity Reaction Status Date / Time ketorolac AdvReac Severe hallucinati Verified 07/30/22 20:25 ons Home Medications Medication Instructions Recorded Confirmed Type albuterol sulfate 90 mcg/actuation 2 puff inhalation Q4H PRN 07/30/22 07/30/22 History aerosol inhaler Shortness Of Breath Or Wheezing aspirin 81 mg tablet,delayed 81 mg PO DAILY 07/30/22 07/30/22 History release atorvastatin 40 mg tablet 40 mg PO QPM 07/30/22 07/30/22 History calcium carbonate 600 mg-vitamin 1 tab PO DAILY 07/30/22 07/30/22 History D3 5 mcg (200 unit) tablet carvedilol 3.125 mg tablet 3.125 mg PO BID 07/30/22 07/30/22 History cholecalciferol (vitamin D3) 25 25 mcg PO DAILY 07/30/22 07/30/22 History mcg (1,000 unit) tablet cyanocobalamin (vitamin B-12) 1,000 mcg PO DAILY 07/30/22 07/30/22 History 1,000 mcg tablet digoxin 125 mcg (0.125 mg) tablet 125 mcg PO QAM 07/30/22 07/30/22 History diphenhydramine 25 1 tab PO HS PRN Pain 07/30/22 07/30/22 History mg-acetaminophen 500 mg tablet (Tylenol PM Extra Strength) enalapril maleate 20 mg tablet 20 mg PO DAILY 07/30/22 07/30/22 History ezetimibe 10 mg tablet 10 mg PO DAILY 07/30/22 07/30/22 History famotidine 40 mg tablet 40 mg PO DAILY 07/30/22 07/30/22 History ferrous sulfate 325 mg (65 mg 325 mg PO BID 07/30/22 07/30/22 History iron) tablet (Iron (ferrous sulfate)) fluoxetine 10 mg capsule 10 mg PO DAILY 07/30/22 07/30/22 History fluoxetine 20 mg capsule 20 mg PO DAILY 07/30/22 07/30/22 History fluticasone furoate 200 1 inh inhalation DAILY 07/30/22 07/30/22 History mcg-vilanterol 25 mcg/dose inhalation powder (Breo Ellipta) isosorbide mononitrate 30 mg 30 mg PO QAM 07/30/22 07/30/22 History tablet,extended release 24 hr lorazepam 0.5 mg tablet 0.5 mg PO HS 07/30/22 07/30/22 History multivitamin 1 tab PO DAILY 07/30/22 07/30/22 History nitroglycerin 0.4 mg sublingual 0.4 mg sublingual .PRN/UD 07/30/22 07/30/22 History tablet omega-3 fatty acids 1,000 mg 1,000 mg PO DAILY 07/30/22 07/30/22 History capsule omeprazole 40 mg capsule,delayed 40 mg PO DAILY 07/30/22 07/30/22 History release Patient History Medical History (Updated 07/31/22 @ 10:48 by Hannah Casey PA-C) Chest pain High cholesterol History of angina Hypertension Family History Other Family history non-contributory Social History Smoking Status: Never smoker Hx Alcohol Use: No Hx Substance Use: No Preferred Language: Sammarinese Communication Ability: Effective Contribution Solicitor Required: No Beliefs That Will Affect Care: None Current Living Situation: Spouse and Family Current Living Situation Comment: Pt lives with spouse, son and [id number] Other Information That Helps Us Care for You: No Feels Safe at Home: Yes Safety Concerns: Feels Safe At This Time Assistive Devices: Denture - Upper, Denture - Lower and Glasses Review of Systems Review of Systems: All systems reviewed & are unremarkable except as noted in HPI & below Physical Exam Constitutional: WD/WN, vitals as above well developed and well nourished; no acute distress Neck: trachea midline, no thyromegaly Respiratory: normal respiratory effort, lungs clear to auscultation no respiratory distress and no cough Auscultation: lungs clear to auscultation bilaterally; no crackles and no wheezes Cardiovascular: Rate/Rhythm: regular rate and regular rhythm Heart Sounds: normal S1 and normal S2; no murmur Vessels: no JVD Extremities: no edema Gastrointestinal (Abdomen): normal bowel sounds, soft, nontender, no hepatosplenomegaly Skin: no rashes, warm and dry Psychiatric: A+Ox3, euthymic affect Results & Data ([facility]) Vital Signs (Past 12 Hours) Vital Signs Temp Pulse Pulse Resp BP Pulse Ox O2 Del Method 07/31/22 07:56 36.4 C L 66 16 140/76 96 Room Air 07/31/22 07:57 62 07/31/22 03:22 36.7 C 62 24 121/61 96 Room Air 07/31/22 00:00 69 07/30/22 23:41 36.4 C L 69 24 123/54 L 95 Room Air 07/30/22 21:34 62 07/30/22 21:24 36.4 C L 58 L 20 177/85 H 100 Room Air Laboratory Results Cardiac Enzymes 07/30/22 07/30/22 07/30/22 Range/Units 17:30 21:30 21:30 AST 21 (13-39) U/L Troponin I High Sens 7.3 10.9 (0-20) pg/ml B-Natriuretic Peptide 94 (0-100) pg/ml 07/31/22 07/31/22 Range/Units 02:31 02:31 AST (13-39) U/L Troponin I High Sens 10.7 Cancelled (0-20) pg/ml B-Natriuretic Peptide (0-100) pg/ml Coagulation 07/30/22 Range/Units 21:30 B-Natriuretic Peptide 94 (0-100) pg/ml CBC 07/30/22 07/31/22 Range/Units 17:30 02:31 WBC 7.14 6.35 (4.8-10.8) K/ul RBC 3.85 L 3.45 L (4.63-6.08) M/uL Hgb 12.6 L 11.3 L (14.0-18.0) g/dl Hct 37.4 L 33.1 L (40.1-51.0) % Plt Count 158 141 (130-400) K/uL Neut # (Auto) 4.15 (1.4-6.5) K/uL Lymph # (Auto) 1.90 (1.2-3.4) K/uL [place] # (Auto) 0.73 (0.24-0.82) K/uL Eos # (Auto) 0.30 (0-0.50) K/uL Baso # (Auto) 0.03 (0-0.2) K/uL Comprehensive Metabolic Panel 07/30/22 07/31/22 Range/Units 17:30 02:31 Sodium 136 139 (136-145) mmol/L Potassium 4.5 4.2 (3.5-5.1) mmol/L Chloride 105 109 H (98-107) mmol/L Carbon Dioxide 25 25 (21-32) mmol/L BUN 17 19 (6-23) mg/dl Creatinine 1.02 1.04 (0.6-1.4) mg/dl Glucose 94 119 H (70-99(Fasting)) mg/dl Calcium 9.3 8.6 (8.5-10.1) mg/dl AST 21 (13-39) U/L ALT 20 (7-52) U/L Alkaline Phosphatase 62 (34-104) U/L Total Protein 6.4 (6.0-8.3) gm/dl Albumin 4.0 (3.4-5.0) gm/dl Intake and Output 07/30/22 07/31/22 07/31/22 22:59 06:59 14:59 Intake Total 0 / 365 365 / 365 Output Total 450 / 450 Balance 0 / -85 -85 / -85 Intake: IV 0 / 0 Sodium Chloride 0.9% 1000ML 1, 0 / 0 000 ml @ 80 mls/hr IV .[id number] [facility] Rx#:[id number] Oral 365 / 365 Output: Urine 450 / 450 Other: # Unmeasured Voids 1 Weight 83.4 kg 83.5 kg Weight Measurement Method Built in [facility] Built in [facility] Diagnostic Findings Telemetry reviewed: NSR in the 60's. no arrhythmias. EKG on arrival 07/30: NSR at 64 bpm, nonspecific ST/T wave abnormality but no acute changes. No significant change from previous/outpatient EKG. Repeat EKG 07/31: NSR, non specific ST/T wave abnormality. No acute changes. Chest CTA reviewed dated 07/30/22: IMPRESSION: Unremarkable CTA of the chest. No thoracic aortic aneurysm or dissection. Outpatient echo report reviewed dated February 2021: Normal LV chamber size with mild concentric LVH. Normal LV systolic function without regional wall motion abnormality. Calculated LV ejection Fraction = 62% (bi-plane method of discs). Was grade 1 diastolic dysfunction. Trileaflet aortic valve with moderate sclerosis, no stenosis. Medications Administered Medications albuterol sulfate 90 mcg/actuation aerosol inhaler 2 puff inhalation Q4H PRN Shortness Of Breath Or Wheezing 07/30/22 [History Confirmed 07/30/22] aspirin 81 mg tablet,delayed release 81 mg PO DAILY 07/30/22 [History Confirmed 07/30/22] atorvastatin 40 mg tablet 40 mg PO QPM 07/30/22 [History Confirmed 07/30/22] calcium carbonate 600 mg-vitamin D3 5 mcg (200 unit) tablet 1 tab PO DAILY 07/30/22 [History Confirmed 07/30/22] carvedilol 3.125 mg tablet 3.125 mg PO BID 07/30/22 [History Confirmed 07/30/22] cholecalciferol (vitamin D3) 25 mcg (1,000 unit) tablet 25 mcg PO DAILY 07/30/22 [History Confirmed 07/30/22] cyanocobalamin (vitamin B-12) 1,000 mcg tablet 1,000 mcg PO DAILY 07/30/22 [History Confirmed 07/30/22] digoxin 125 mcg (0.125 mg) tablet 125 mcg PO QAM 07/30/22 [History Confirmed 07/30/22] diphenhydramine 25 mg-acetaminophen 500 mg tablet (Tylenol PM Extra Strength) 1 tab PO HS PRN Pain 07/30/22 [History Confirmed 07/30/22] enalapril maleate 20 mg tablet 20 mg PO DAILY 07/30/22 [History Confirmed 07/30/22] ezetimibe 10 mg tablet 10 mg PO DAILY 07/30/22 [History Confirmed 07/30/22] famotidine 40 mg tablet 40 mg PO DAILY 07/30/22 [History Confirmed 07/30/22] ferrous sulfate 325 mg (65 mg iron) tablet (Iron (ferrous sulfate)) 325 mg PO BID 07/30/22 [History Confirmed 07/30/22] fluoxetine 10 mg capsule 10 mg PO DAILY 07/30/22 [History Confirmed 07/30/22] fluoxetine 20 mg capsule 20 mg PO DAILY 07/30/22 [History Confirmed 07/30/22] fluticasone furoate 200 mcg-vilanterol 25 mcg/dose inhalation powder (Breo Ellipta) 1 inh inhalation DAILY 07/30/22 [History Confirmed 07/30/22] isosorbide mononitrate 30 mg tablet,extended release 24 hr 30 mg PO QAM 07/30/22 [History Confirmed 07/30/22] lorazepam 0.5 mg tablet 0.5 mg PO HS 07/30/22 [History Confirmed 07/30/22] multivitamin 1 tab PO DAILY 07/30/22 [History Confirmed 07/30/22] nitroglycerin 0.4 mg sublingual tablet 0.4 mg sublingual .PRN/UD 07/30/22 [History Confirmed 07/30/22] omega-3 fatty acids 1,000 mg capsule 1,000 mg PO DAILY 07/30/22 [History Confirmed 07/30/22] omeprazole 40 mg capsule,delayed release 40 mg PO DAILY 07/30/22 [History Confirmed 07/30/22] Home Medications Acetaminophen (Acetaminophen 325 Mg Tab) 650 mg PO Q4H PRN PRN Reason: Pain or Fever Stop: 08/29/22 19:58 Al Hydrox/Mg Hydrox/Simethicone (Aluminum/Magnesium Susp 30 Ml Udc) 15 ml PO Q4H PRN PRN Reason: Dyspepsia Stop: 08/29/22 19:58 Aspirin (Aspirin 81 Mg Ectab) 81 mg PO DAILY TORREY Stop: 08/30/22 08:59 Last Admin: 07/31/22 07:55 Dose: 81 mg Atorvastatin Calcium (Atorvastatin 40 Mg Tab) 40 mg PO QPM TORREY Stop: 08/29/22 21:44 Last Admin: 07/30/22 22:09 Dose: 40 mg Carvedilol (Carvedilol 3.125 Mg Tab) 3.125 mg PO BID TORREY Stop: 08/29/22 21:44 Last Admin: 07/31/22 07:58 Dose: 3.125 mg Cyanocobalamin (Cyanocobalamin (B-12) 500 Mcg Tablet) 1,000 mcg PO DAILY TORREY Stop: 08/30/22 08:59 Last Admin: 07/31/22 07:56 Dose: 1,000 mcg Digoxin (Digoxin 0.125 Mg Tab) 0.125 mg PO QAM TORREY Stop: 08/30/22 08:59 Last Admin: 07/31/22 07:57 Dose: 0.125 mg Diphenhydramine HCl (Diphenhydramine Capsule 25 Mg Cap) 25 mg PO HS PRN; Protocol PRN Reason: Pain Stop: 08/29/22 21:55 Ezetimibe (Ezetimibe 10 Mg Tablet) 10 mg PO DAILY TORREY Stop: 08/30/22 08:59 Last Admin: 07/31/22 07:57 Dose: 10 mg Enalapril Maleate (Enalapril Maleate 10 Mg Tab) 20 mg PO DAILY TORREY Stop: 08/30/22 08:59 Last Admin: 07/31/22 07:57 Dose: 20 mg Famotidine (Famotidine 40 Mg Tablet) 40 mg PO DAILY TORREY Stop: 08/30/22 08:59 Last Admin: 07/31/22 07:57 Dose: 40 mg Fluoxetine HCl (Fluoxetine Hcl 10 Mg Cap) 10 mg PO DAILY TORREY Stop: 08/30/22 08:59 Last Admin: 07/31/22 07:56 Dose: 10 mg Fluoxetine HCl (Fluoxetine Hcl 20 Mg Cap) 20 mg PO DAILY TORREY Stop: 08/30/22 08:59 Last Admin: 07/31/22 07:55 Dose: 20 mg Fluticasone/Vilanterol (Fluticasone/Vilanterol 200/25mcg 14 Puffs/Inhaler) 1 puffs INH QDR TORREY Stop: 08/30/22 08:59 Heparin Sodium (Porcine) (Heparin Sod 5,000 Unit/0.5 Ml Vial) 5,000 units SQ Q12 TORREY Stop: 08/29/22 21:59 Last Admin: 07/31/22 07:57 Dose: 5,000 units Sodium Chloride (Nss 1000ml) 1,000 mls @ 80 mls/hr IV .[id number] TORREY Stop: 07/31/22 16:58 Last Infusion: 07/30/22 21:00 Dose: 80 mls/hr Isosorbide Mononitrate (Isosorbide [place] Extended Rel 30 Mg Tabcr) 30 mg PO QAM TORREY Stop: 08/30/22 08:59 Last Admin: 07/31/22 07:56 Dose: 30 mg Lorazepam (Lorazepam 0.5 Mg Tab) 0.5 mg PO HS TORREY Stop: 08/29/22 21:59 Last Admin: 07/30/22 22:17 Dose: 0.5 mg Multivitamins/Minerals (Calcium 600mg + Vit D 400 Iu Tab) 1 tab PO DAILY [facility]; Protocol Stop: 08/30/22 08:59 Last Admin: 07/31/22 07:56 Dose: 1 tab Nitroglycerin (Nitroglycerin Sl 0.4 Mg/Tab Tab) 0.4 mg SL UD PRN PRN Reason: Chest Pain Stop: 08/29/22 19:58 Ondansetron HCl (Ondansetron Inj 2 Mg/Ml 2 Ml Vial) 4 mg IV Q6H PRN PRN Reason: Nausea Stop: 08/29/22 19:58 Pantoprazole Sodium (Pantoprazole 40 Mg Tab) 40 mg PO DAILY [facility]; Protocol Stop: 08/30/22 08:59 Last Admin: 07/31/22 07:56 Dose: 40 mg Polyethylene Glycol (Polyethylene (Miralax) 17 Gm Pack) 17 gm PO DAILY PRN PRN Reason: Constipation Stop: 08/29/22 19:58
[2022-07-31] MEDS ORDERED: FAMOTIDINE 40 MG TABLET PO SCH (09:00)
[2022-07-31] MEDS ORDERED: DIGOXIN 0.125 MG TAB PO SCH (09:00)
[2022-07-31] MEDS ORDERED: CALCIUM 600MG + VIT D 400 IU TAB PO SCH (09:00)
[2022-07-31] MEDS ORDERED: PANTOprazole 40 MG TAB PO SCH (09:00)
[2022-07-31] MEDS ORDERED: FLUoxetine HCL 20 MG CAP PO SCH (09:00)
[2022-07-31] MEDS ORDERED: EZETIMIBE 10 MG TABLET PO SCH (09:00)
[2022-07-31] MEDS ORDERED: ENALAPRIL MALEATE 10 MG TAB PO SCH (09:00)
[2022-07-31] MEDS ORDERED: ISOSORBIDE MONO EXTENDED REL 30 MG TABCR PO SCH (09:00)
[2022-07-31] MEDS ORDERED: CYANOCOBALAMIN (B-12) 500 MCG TABLET PO SCH (09:00)
[2022-07-31] MEDS ORDERED: FLUTICASONE/VILANTEROL 200/25MCG 14 PUFFS/INHALER INH SCH (09:00)
[2022-07-31] MEDS ORDERED: ASPIRIN 81 MG ECTAB PO SCH (09:00)
[2022-07-31] MEDS ORDERED: FLUoxetine HCL 10 MG CAP PO SCH (09:00)
[2022-07-31] MEDS: SODIUM CHLORIDE 0.9% 1000ML 1,000 ML IV SCH (09:55)
--- NOTE | 2022-07-31 10:24 | Electrocardiogram Report ---
Test Reason : Blood Pressure : / mmHG Vent. Rate : 064 BPM Atrial Rate : 064 BPM P-R Int : 172 ms QRS Dur : 086 ms QT Int : 392 ms P-R-T Axes : 017 -19 020 degrees QTc Int : 404 ms Normal sinus rhythm Nonspecific ST abnormality Abnormal ECG When compared with ECG of 03-MAR-2019 23:23, Vent. rate has decreased BY 33 BPM Confirmed by Asim Ballard ([id number]) on 07/31/2022 10:23:39 AM Referred By: REFERRED SELF Confirmed By:Asim Ballard
[2022-07-31] MEDS ORDERED: ATROPINE SULFATE 0.1 MG/ML 10ML SYR IV ONE (10:37)
[2022-07-31] MEDS ORDERED: DOBUTamine HCL 12.5 MG/ML 20 ML VIAL IV ONE (10:37)
[2022-07-31] MEDS ORDERED: METOPROLOL TARTRATE 1 MG/ML VIAL IV ONE (10:37)
--- NOTE | 2022-07-31 12:29 | Discharge Summary ---
Date of Service July 31, 2022 Admission HPI Per Admitting Provider 82-year-old male with PMH of GERD, CAD, HTN, HLD, AZIZA, occupational lung disease, SNHL presented to our ED 07/30 with complaint of chest discomfort. Per patient, it started as fatigue with exertion about a week ago, then developed into left chest pain with radiation to back associated with tingling sensation in left arm, patient would feel winded and nauseated especially with activity and had chest pain 1-2 times during rest, progressively worsening especially with regard to frequency, intensity being around 3-5 over 10 as a pressure sensation. Patient denies any fever/sore throat/cough/palpitations/belly pain/acute changes in his bowel or bladder habit. Patient reports some headache after receiving nitro in the ED. Patient denies use of alcohol or recreational drugs. Patient was a former smoker, quit 11/19/1969. Full code Medications reviewed with patient's daughter at bedside. Admission Exam Per Admitting Provider GENERAL: Alert and oriented x3. NAD, on RA. HEENT: No pallor, no icterus. Pupils equal, round and reactive to light. Oral mucosa moist. NECK: No JVD, no neck masses. HEART: S1 and S2 heard. Regular rate and rhythm. No murmur, no gallop. RESPIRATORY SYSTEM: Normal AP diameter. No accessory muscle use. No wheezing, no crackles. ABDOMEN: Soft, bowel sounds present, nontender, no distention. CENTRAL NERVOUS SYSTEM: No facial droop. Speech is clear. Obeys simple commands. Moves extremities. EXTREMITIES: Trace to 1+ BLE edema, no erythema seen. Principal Diagnosis Chest discomfort, rule out ACS versus dyspepsia Discharge Exam GENERAL: Alert and oriented x3. NAD, on RA. HEENT: No pallor, no icterus. Pupils equal, round and reactive to light. Oral mucosa moist. NECK: No JVD, no neck masses. HEART: S1 and S2 heard. Regular rate and rhythm. No murmur, no gallop. RESPIRATORY SYSTEM: Normal AP diameter. No accessory muscle use. No wheezing, no crackles. ABDOMEN: Soft, bowel sounds present, nontender, no distention. CENTRAL NERVOUS SYSTEM: No facial droop. Speech is clear. Obeys simple commands. Moves extremities. EXTREMITIES: Trace BLE edema, no erythema seen. Discharge Data Allergies Allergy/AdvReac Type Severity Reaction Status Date / Time ketorolac AdvReac Severe hallucinati Verified 07/30/22 20:25 ons Consultations 07/30/22 19:30 ED Decision to Admit Stat 07/30/22 19:59 Consult Cardiology Routine Ordered Studies 07/30/22 17:37 CT angio chest dissec wo/w con Stat Hospital Course (1) Chest pain: Plan 82-year-old gentleman was managed for the following: Chest discomfort rule out ACS versus dyspepsia Fatigue/dyspnea with exertion Patient came in with evolution of symptoms over the course of last 1 week including chest discomfort. Admitting EKG w/ nonspecific ST abn, troponin x4 were negative, echo reviewed with grade 1 diastolic dysfunction and EF 55 to 60%, admitting CTA chest with no PE or infection. Dobutamine stress test WNL. Patient had remote history of heart cath with coronary artery disease of a small vessel per patient's daughter at bedside. BNP normal, patient feels better and would like to go home. Cardiology okay with patient being discharged from their point of view. Patient's omeprazole has been made twice a day for 2 weeks and then back to once daily as prior. Patient eating at bedside, denies any chest discomfort, feels better. Other chronic medical conditions: HTN/GERD/HLD/CAD --> continue with/resume home meds as and when appropriate. DVT prophylaxis: Heparin Full code Patient being discharged home with following instruction at the point of discharge: Follow-up with your primary care physician within a week time. You were evaluated by cardiology while inpatient for your chest discomfort, your stress test were within normal limit. Taking your home omeprazole twice a day for 2 weeks and then back to once daily as prior. Take your medications as prescribed. Total Time Total Time Spent Total Time Spent (In Minutes): 35 Discharge Plan Discharge Items Patient Disposition: Home - Self-Care Reason For Visit: CHEST DISCOMFORT Discharge Diagnosis: Chest discomfort rule out ACS versus dyspepsia Activity: Resume your previous activity Non-emergency contact: Primary Care Provider Call non-emergency contact if: you have any medication questions, your symptoms worsen and your temperature is above 101 Follow-up/Referrals: Zainab Raya MD [Primary Care Provider] - (Date & Time 08/03/2022 12:40 PM Provider Zainab Raya MD Department General Internal Medicine [facility] ) Diet: Heart Healthy Addtl Attending Provider Instructions: Follow-up with your primary care physician within a week time. You were evaluated by cardiology while inpatient for your chest discomfort, your stress test were within normal limit. Taking your home omeprazole twice a day for 2 weeks and then back to once daily as prior. Take your medications as prescribed. Pending Studies at Discharge: No Stand-Alone Forms: [facility] Medications and DC Order Prescriptions: Continued albuterol sulfate 90 mcg/actuation Hfa Aerosol Inhaler 2 puff INHALATION Q4H PRN (Reason: Shortness Of Breath Or Wheezing) fluticasone furoate-vilanterol [Breo Ellipta] 200-25 mcg/dose Blister With Device 1 inh INHALATION DAILY atorvastatin 40 mg tablet 40 mg PO QPM calcium carbonate-vitamin D3 [Calcium + D] 600 mg-5 mcg (200 unit) Tablet 1 tab PO DAILY carvedilol 3.125 mg tablet 3.125 mg PO BID digoxin 125 mcg (0.125 mg) tablet 125 mcg PO QAM aspirin [Aspir-Low] 81 mg Tablet,Delayed Release (Dr/Ec) 81 mg PO DAILY enalapril maleate 20 mg tablet 20 mg PO DAILY ezetimibe 10 mg tablet 10 mg PO DAILY omega-3 fatty acids [Fish Oil Concentrate] 1,000 mg Capsule 1,000 mg PO DAILY fluoxetine 20 mg capsule 20 mg PO DAILY Rx Instructions: TAKE WITH 10MG = 30MG DAILY cholecalciferol (vitamin D3) 25 mcg (1,000 unit) Tablet 25 mcg PO DAILY cyanocobalamin (vitamin B-12) 1,000 mcg Tablet 1,000 mcg PO DAILY ferrous sulfate [Iron (ferrous sulfate)] 325 mg (65 mg iron) Tablet 325 mg PO BID isosorbide mononitrate 30 mg tablet extended release 24 hr 30 mg PO QAM lorazepam 0.5 mg tablet 0.5 mg PO HS fluoxetine 10 mg capsule 10 mg PO DAILY Rx Instructions: TAKE WITH 20MG = 30MG DAILY nitroglycerin 0.4 mg Tablet, Sublingual 0.4 mg sublingual .PRN/UD Rx Instructions: NEEDED FOR CHEST PAIN : ONE TABLET UNDER THE TONGUE EVERY 5 MINUTES,UP TO THREE DOSES. multivitamin [Multiple Vitamin] Tablet 1 tab PO DAILY diphenhydramine-acetaminophen [Tylenol PM Extra Strength] 25-500 mg Tablet 1 tab PO HS PRN (Reason: Pain) famotidine 40 mg Tablet 40 mg PO DAILY Changed omeprazole 40 mg Capsule,Delayed Release(Dr/Ec) 40 mg PO BID Qty: 28 0RF Discharge Orders: Discharge Order (Routine); Ordered 07/31/22 Ordered By: Earnest Pena Admission Data Admit Date/Time: 07/30/22 19:51 Attending Provider: Earnest Pena Admit Provider: Earnest Pena Primary Care Provider: Zainab Raya Other Providers: Earnest Pena ; Raymundo Acuña
--- NOTE | 2022-07-31 16:13 | Electrocardiogram Report ---
Test Reason : Blood Pressure : / mmHG Vent. Rate : 066 BPM Atrial Rate : 066 BPM P-R Int : 196 ms QRS Dur : 088 ms QT Int : 388 ms P-R-T Axes : 058 -16 004 degrees QTc Int : 406 ms Normal sinus rhythm Nonspecific ST abnormality Abnormal ECG When compared with ECG of 30-JUL-2022 17:18, (unconfirmed) No significant change was found Confirmed by Asim Ballard ([id number]) on 07/31/2022 4:13:50 PM Referred By: REFERRED SELF Confirmed By:Asim Ballard
== END 2022-07-31 14:22 | disposition home or self-care (01) ==
LOC: ED 17:01 → 2E 17:01 → SUATTDRO 19:51 → 2E 21:02